=== PATIENT | male | born 1935 | race Caucasian/White ===

== ENCOUNTER 2017-07-30 13:21 | Inpatient (IN) | payer MEDICARE ==
[2017-07-30 14:41] LABS: CKMB 2.8 ng/mL (0-6.6)
[2017-07-30 14:43] LABS: Troponin I 0.394 ng/mL (< 0.028)
[2017-07-30 18:11] LABS: Lactic Acid 2.5 mmol/L (0.5-2.2)
--- NOTE | 2017-07-30 19:41 | HP ---
PRIMARY CARE PHYSICIAN: Dr. Omalley. CHIEF COMPLAINT: Cough and congestion. HISTORY OF PRESENT ILLNESS: Mr. Simeon is a pleasant 82-year-old gentleman that has a history of hyper tension as well as coronary artery disease. He was recently hospitalized at [facility] in [facility] after he suffered a fall with rib fractures. This was in June of this year. He was treated and re leased and says that he was doing better. The pain was improving, but he says about a week ago, he s tarted having some cough on and off primarily at night. The phlegm was initially greenish, but then more recently has become more whitish in color without any blood and he says that late last night he says "he is not sure what happened." It sounds like he said he was having a lot of pain last night a nd then this morning it sounds like he may have been confused because he says he does not know how he got to the hospital. He was taken to the emergency room in [place] by family. There, they did a chest x-ray as well as an EKG and lab work and it was discovered that he has a significant infiltr ate in the right lower lobe as well as leukocytosis and elevated troponin and he is being transferred to our facility for admission for pneumonia with sepsis. The patient at this time denies having any chest pain. He denies feeling short of breath. He says he has had some nausea off and on. He has denied having any subjective fever or chills at home. He says that he maintained a good appetite dur ing this time and has not had any diarrhea. No vomiting. REVIEW OF SYSTEMS: CONSTITUTIONAL: No subjective fever, no chills, no mention of any night sweats o r weight loss. HEENT: No headaches, no dizziness, no visual changes, no sore throat, rhinorrhea, ne ck pain, no adenopathy. PULMONARY: As the history of present illness. CARDIOVASCULAR: He denies a ny chest pain, no shortness of breath, no PND, no orthopnea. No lower extremity edema. GASTROINTEST INAL: He has had some nausea, but no vomiting, no abdominal pain, no change in bowels. GENITOURINAR Y: No urinary frequency, hematuria or hesitancy. NEUROLOGIC: No focal weakness, numbness, no seizu res. MUSCULOSKELETAL: No muscle pains, but he does have an occasional joint pain in the right knee from a previous surgery. SKIN/INTEGUMENT: No skin changes. No rash. PSYCHIATRIC: No symptoms of anxiety or depression. PAST MEDICAL HISTORY: Significant for hypertension, coronary artery disease, chronic kidney disease stage 3, and osteoarthritis. PAST SURGICAL HISTORY: He has had a right total knee replacement. This was complicated by a joint i nfection. He has had 4 surgeries on the knee as well as left shoulder surgery. ALLERGIES: Include MORPHINE, LEVOFLOXACIN, CRESTOR, and SIMVASTATIN. SOCIAL HISTORY: He lives with his and he has a son with a closed head injury who lives on their property. He drinks socially. He chews tobacco. He is not a smoker. CODE STATUS: FULL CODE. He would like to be resuscitated. FAMILY HISTORY: Negative. CURRENT MEDICATIONS: He is not sure of the names and doses of his medications. He says his jay arreola bring these by later. PHYSICAL EXAMINATION: GENERAL: He is alert and oriented. He appears to be in no acute distress. VITAL SIGNS: Blood pressure was 116/72, heart rate 99, respiratory rate of 18, temperature was 99. HEENT: Pupils are equal, round, and reactive. Extraocular muscles are intact. His sclerae are anic teric. Throat: There is no erythema, no exudates. He has got poor dentition. NECK: There is no adenopathy, no bruits. LUNGS: He had some rales in the right base; however, it was difficult to examine him due to his posi tioning on the stretcher. CARDIOVASCULAR: He had a normal S1 and S2. I did not appreciate an S3 or S4. No murmurs, clicks, n o rubs. ABDOMEN: Obese, it is soft. He had some mild right-sided tenderness. There was no rebound, no guar ding, no appreciable organomegaly. Bowel sounds were positive. EXTREMITIES: He had trace edema. It was noted he had no hair on his extremities. Pulses, however, were diminished but palpable. Good capillary refill. NEUROLOGIC: Neurologically, the exam is grossly nonfocal. LABORATORY DATA AND IMAGING DATA: His white count was 14.4, hemoglobin 15.5, hematocrit is 51, plate let count was 176, 83% neutrophils. Sodium 142, potassium 3.5, chloride is 102, CO2 is 26, BUN of 21 , creatinine 1.57, glucose is 123, troponin was 0.394. He had an EKG which is sinus rhythm, the rate was 120. He had some T-wave inversion and/or flattening in leads 1 and aVL, some voltage criteria f or left ventricular hypertrophy as well as leftward axis. This is by my reading and also had a chest x-ray with a dense airspace disease in the right lower lobe and the heart size looks normal and ther e was no evidence of effusion. ASSESSMENT AND PLAN: 1. This is a pleasant 82-year-old gentleman who presents to the emergency room with cough and conges tion with no subjective fever, but he does have leukocytosis as well as an elevated troponin and appa rently what sounds like there was some transient confusion, likely representing an encephalopathy. Lakshmi low will be admitted to telemetry since he does have the evidence of troponin and elevated troponin. Lakshmi low will be placed on broad spectrum IV antibiotics to cover for healthcare associated pneumonia since he has been in the hospital within the last 90 days. He will also be monitored on telemetry. We jay l continue to trend his cardiac enzymes and we will also get an echocardiogram. I suspect this is a demand ischemia from the pneumonia with sepsis. However, should his troponins go significantly highe r, then Cardiology consultation would be warranted. 2. Hypertension. We will continue his home medications once we obtain the names and doses and dark these as indicated. He may also need p.r.n. medications as well. 3. Chronic kidney disease. His creatinines were reviewed from previous admissions and his current c reatinine is actually slightly improved from before. We will monitor this carefully during his hospi charly stay and renal dose medications if needed.
[2017-07-30] MEDS ORDERED: Sodium Chloride 0.9% 1,000 ML IV SCH (20:45)
[2017-07-30] MEDS ORDERED: Benzonatate 100 MG CAP PO PRN (20:56)
[2017-07-30] MEDS ORDERED: Acetaminophen 325 MG TAB PO PRN (20:56)
[2017-07-30] MEDS ORDERED: Cefepime 1 GM in Sodium Chloride 0.9% 100 ML IVPB SCH (21:00)
[2017-07-30] MEDS ORDERED: Vancomycin HCl 1 GM in Premix Bag 1 BAG IVPB SCH (21:00)
[2017-07-30 21:14] VITALS: BMI 27.7
[2017-07-30] MEDS ORDERED: Vancomycin HCl 1.75 GM in Sodium Chloride 0.9% 500 ML IVPB SCH (21:15)
[2017-07-30] MEDS ORDERED: VANCOMYCIN IVPB PRN (21:16)
[2017-07-30 21:34] LABS: Lactic Acid 1.9 mmol/L (0.5-2.2)
[2017-07-30] MEDS: Docusate 100 MG CAP PO SCH (21:40)
[2017-07-30] MEDS: Heparin 5,000 UNITS/ML VIAL SC SCH (21:41)
[2017-07-30 21:47] LABS: Troponin I 1.071 ng/mL (< 0.028)
--- NOTE | 2017-07-30 22:12 | PDOC.EVN ---
Event Note - Event Note Event Note: paged by RN, trponin h as been elevated in the lower side, likely NSTEMI type 2 from underlying pneumonia, we will trend next level at 12:00 and treat accordingly.
[2017-07-31] MEDS: HYDROcodone/Acetaminophen 10/325 mg Tablet PO PRN ×3 (00:30→14:29)
[2017-07-31] MEDS: Cefepime 1 GM in Sodium Chloride 0.9% 100 ML IVPB SCH ×3 (00:35→23:36)
[2017-07-31 00:51] LABS: Critical Call Chem Troponin I RESULT DECREASING; Troponin I 1.016 ng/mL (< 0.028)
[2017-07-31 05:24] LABS: #Basophils 0.1 thou/uL (0.0-0.2); #Eosinphils 0.1 thou/uL (0.0-0.7); #Lymphocytes 1.4 thou/uL (1.20-3.40); #Monocytes 0.7 thou/uL (0.11-0.59); %Basophils 0.5 % (0.0-1.0); %Eosinophils 0.9 % (0.0-10.0); %Lymphocytes 10.5 % (21.0-51.0); %Monocytes 5.4 % (0.0-10.0); %Neutrophils 82.8 % (42.0-75.0); Hemoglobin 11.9 g/dL (14.0-18.0); Mean Corpuscular HGB CONC 30.4 g/dL (32.0-36.0); Mean Corpuscular Hemoglobin 27.7 pg (27.0-31.0); Mean Corpuscular Volume 91.2 fL (78.0-98.0); Mean Platelet Volume 7.2 fL (7.4-10.4); Platelet Count 137 thou/uL (130-400); RBC Distribution Width 14.1 % (11.5-14.5); Red Blood Cell (RBC) Count 4.29 mill/uL (4.70-6.10); White Blood Cell (WBC) Count 13.3 thou/uL (4.8-10.8)
[2017-07-31 05:46] LABS: Anion Gap 12 mmol/L (10-20); BUN (Urea Nitrogen) 20 mg/dL (8.4-25.7); Calc. Creatinine Clearance 49 mL/min (70-130); Calcium 7.9 mg/dL (7.8-10.44); Carbon Dioxide 25 mmol/L (23-31); Chloride 107 mmol/L (98-107); Estimated GFR-MDRD 43; Glucose 86 mg/dL (83-110); Potassium 3.4 mmol/L (3.5-5.1); Sodium 141 mmol/L (136-145)
[2017-07-31] MEDS: Heparin 5,000 UNITS/ML VIAL SC SCH ×3 (08:23→21:06)
[2017-07-31] MEDS: Docusate 100 MG CAP PO SCH ×2 (08:23→21:06)
[2017-07-31] MEDS: hydrALAZINE 20 MG/ML VIAL SLOW IVP PRN (08:23)
[2017-07-31] MEDS: Sodium Chloride 0.9% 1,000 ML IV SCH ×2 (08:29→14:31)
[2017-07-31] MEDS ORDERED: HYDROcodone/Acetaminophen 10/325 mg Tablet PO PRN (09:49)
[2017-07-31] MEDS ORDERED: Acetaminophen 325 MG TAB PO PRN (09:49)
[2017-07-31] MEDS ORDERED: Meclizine HCl 25 MG TAB PO PRN (09:49)
[2017-07-31] MEDS ORDERED: Loratadine 10 MG TAB PO PRN (10:00)
[2017-07-31] MEDS: Albuterol Sulfate 2.5 mg/3 ml Neb NEB SCH ×3 (10:20→18:35)
[2017-07-31] MEDS ORDERED: Carvedilol 3.125 MG TAB PO SCH (11:30)
[2017-07-31] MEDS ORDERED: Ezetimibe 10 MG TAB PO SCH (11:30)
[2017-07-31] MEDS ORDERED: Pantoprazole 40 MG GRANULES PACKET PO SCH (11:45)
[2017-07-31] MEDS ORDERED: Venlafaxine HCl XR 150 MG CAP PO SCH (11:45)
--- NOTE | 2017-07-31 11:52 | RAD ---
CHEST ONE VIEW: History: Follow up pneumonia. Chest pain. Comparison: FINDINGS: Mild interval improvement in the right lower and right middle lobe airspace opacity. Left lung relati vely clear. No pneumothorax. Cardiac silhouette and mediastinal contours are similar. IMPRESSION: Mild improved aeration right middle and lower lobe airspace opacities. Continued follow up recommende d. POS: JOHANNA
--- NOTE | 2017-07-31 12:48 | PRG ---
DATE OF SERVICE: 07/31/2017 SUBJECTIVE: The patient is seen and examined at the bedside. He does not complaint of any fever or chills. He has some cough, but not much. He does not have any chest pain. OBJECTIVE: VITAL SIGNS: Blood pressure is 180/96, pulse is 96, respiratory rate is 18. Temperature is 98.6 and O2 saturation is 94% on room air. HEENT: His head is atraumatic, normocephalic. Eyes are PERRLA. Conjunctivae pinkish. Oral mucosa is moist. NECK: Supple, no lymphadenopathy. LUNGS: Crackles at both bases. No wheezing. HEART: S1, S2 normal, no S3, no S4. ABDOMEN: Soft, nontender, nondistended. Bowel sounds are present, no organomegaly. EXTREMITIES: No clubbing, cyanosis or edema. NEUROLOGIC: He is alert and oriented x4. There is not any sensorimotor deficit. Cranial nerves are intact. LABORATORY DATA: Showed a white count of 13.3, hemoglobin 11.9, hematocrit 39.1, platelet count is 1 37,000. Sodium of 141, potassium 3.4, chloride 107, BUN 20, creatinine 1.56. Lactic acid is down to 1.9 yesterday, calcium 7.9. Two sets of last troponins showed some elevation at 1.071 and 1.016 and chest x-ray showed improvement of right middle and lower lobe airspace opacities. IMPRESSION: 1. Possible right middle and right lower lobe pneumonia. 2. Elevated troponins suggestive of non-ST elevation myocardial infarction. The patient is asymptom atic. 3. Hypertension, uncontrolled. 4. Chronic kidney disease and that is the level of creatinine even improved compared to his baseline . PLAN: The plan is to continue his cefepime and vancomycin. This is treated as healthcare acquired p neumonia broad spectrum. We will start him on his clopidogrel, along with aspirin and group therapist w ill evaluate his condition. I personally talked to Dr. Hernandez who is his group therapist and he is c quinten to see him. We will continue his DVT prophylaxis.
--- NOTE | 2017-07-31 13:35 | CON ---
DATE OF CONSULTATION: 07/31/2017 REASON FOR CONSULTATION: Elevated troponin. PRIMARY CARE PROVIDER: Dr. Garcia HISTORY OF PRESENT ILLNESS: Mr. Simeon is a very pleasant 82-year-old gentleman who I have seen and ev aluated in the past. He recently presented with pneumonia. He states he fell. He has had multiple falling episodes after recent knee replacement. He broke 4 ribs. He has not been able to inspire de eply. He had incentive spirometry, but could not use it due to chest wall pain. He presented to an outlying facility with the cough, congestion and greenish sputum. He was diagnosed with a right lowe r lobe pneumonia. His troponin was felt to be elevated. PAST MEDICAL HISTORY: CAD status post bypass surgery x4, hyperlipidemia, hypertension, previous str clementine, nephrolithiasis, osteoarthritis, knee surgery, left arm surgery. ALLERGIES: STATIN THERAPY, LEVOFLOXACIN, PENICILLIN, ZOCOR. CURRENT MEDICATIONS: Include vitamin D3, Zyrtec, melatonin, hydrocodone, meclizine, Coreg, venlafaxi ne, pantoprazole, Zetia, aspirin, Plavix, tamsulosin, fish oil, Livalo and Zetia. REVIEW OF SYSTEMS: Ten-point review of systems is reviewed and as above, otherwise negative. PHYSICAL EXAMINATION: VITAL SIGNS: Blood pressure 159/74, pulse 82, temperature 98.1. GENERAL: Patient is a pleasant male who is in no acute distress. The patient appears his stated age. NEUROLOGIC: The patient is alert and oriented times 3 with no focal neurologic deficits. HEENT: Sclerae without icterus. Mouth has moist mucous membranes with normal pallor. NECK: No JVD. Carotid upstroke brisk. No bruits bilaterally. LUNGS: Clear to auscultation with unlabored respirations. BACK: No scoliosis or kyphosis. CARDIAC: Regular rate and rhythm with normal S1 and S2. No S3 or S4 noted. No significant rubs, mur murs, thrills, or gallops noted throughout the precordium. PMI is not displaced. There is no parast ernal heave. ABDOMEN: Soft, nontender, nondistended. No peritoneal signs present. No hepatosplenomegaly. No abn ormal striae. EXTREMITIES: 2+ femoral and 2+ dorsalis pedis pulses. No cyanosis, clubbing, or edema. SKIN: No gross abnormalities. PERTINENT LABS: Hemoglobin 11.1, white blood cell count 13.3. Initial white blood cell count 14.4 w ith a baseline of 6-7000. EKG: Normal sinus rhythm, nonspecific ST wave changes. When compared to EKG dated 04/2017 appears i mproved. IMPRESSION: 1. Elevated troponin. 2. Pneumonia. 3. Coronary artery disease. 4. Status post bypass surgery. RECOMMENDATIONS: Mr. Lopez's symptoms are likely related to demand ischemia. He has no current sympt oms suggesting unstable angina. He does have pneumonia, he has been treated with antibiotic therapy. At this point, would recommend medical therapy. Continue aspirin and Plavix. Continue beta block er therapy in addition to Zetia. Recommend incentive spirometry.
[2017-07-31] MEDS: Carvedilol 3.125 MG TAB PO SCH (17:06)
[2017-07-31] MEDS ORDERED: Vancomycin HCl 1 GM in Premix Bag 1 BAG IVPB SCH (21:00)
[2017-07-31] MEDS ORDERED: Pitavastatin Calcium [Livalo] 4 MG PO SCH (21:00)
[2017-07-31] MEDS ORDERED: ALOE VERA PO SCH (21:00)
[2017-07-31] MEDS: Senokot 8.6 MG TAB PO SCH (21:06)
[2017-07-31] MEDS: Clopidogrel Bisulfate 75 MG TAB PO SCH (21:06)
[2017-07-31] MEDS: Tamsulosin HCl 0.4 MG CAP PO SCH (21:06)
[2017-07-31] MEDS: Melatonin 3 MG TAB PO SCH (21:06)
[2017-07-31] MEDS: Fluticasone Propionate Nasal Spray 16 gm Bottle NASAL SCH (21:07)
[2017-08-01] MEDS: Sodium Chloride 0.9% 1,000 ML IV SCH (05:05)
[2017-08-01] MEDS: Albuterol Sulfate 2.5 mg/3 ml Neb NEB SCH ×4 (07:06→18:35)
[2017-08-01] MEDS: Docusate 100 MG CAP PO SCH (08:57)
[2017-08-01] MEDS: Venlafaxine HCl XR 150 MG CAP PO SCH (08:57)
[2017-08-01] MEDS: Ezetimibe 10 MG TAB PO SCH (08:57)
[2017-08-01] MEDS: Carvedilol 3.125 MG TAB PO SCH (08:58)
[2017-08-01] MEDS: Pantoprazole 40 MG GRANULES PACKET PO SCH (08:58)
[2017-08-01] MEDS: hydrALAZINE 20 MG/ML VIAL SLOW IVP PRN (08:58)
[2017-08-01] MEDS: Heparin 5,000 UNITS/ML VIAL SC SCH ×2 (09:08→15:26)
--- NOTE | 2017-08-01 11:34 | PDOC.PN ---
- Subjective Encounter Start Date: 08/01/17 Encounter Start Time: 11:34 Patient seen and examined. Admitted for Right Lower lobe pneumonia, elevated troponin. Doing well today and has no complaints. wants to ambulate better but reports his walker being at home. No acute events overnight. - Objective Resuscitation Status: Resuscitation Status FULL:Full Resuscitation MAR Reviewed: Yes Vital Signs & Weight: Vital Signs (12 hours) Temp Pulse Resp BP BP Pulse Ox 08/01/17 10:40 125/71 08/01/17 10:23 82 16 92 L 08/01/17 08:58 95 202/107 H 08/01/17 08:45 96.9 F L 95 18 202/107 H 93 L 08/01/17 07:06 83 16 93 L 08/01/17 03:16 98.9 F 90 18 164/78 H 92 L Weight Weight 204 lb 1 oz I&O: 07/31/17 08/01/17 08/02/17 06:59 06:59 06:59 Intake Total 1230 1972 Output Total 1350 3575 Balance -120 -1603 Result Diagrams: 07/31/17 04:51 07/31/17 04:51 Phys Exam - Physical Examination Constitutional: NAD HEENT: moist MMs, sclera anicteric Neck: no JVD, supple, full ROM Respiratory: no wheezing, no rales, no rhonchi, clear to auscultation bilateral Cardiovascular: RRR, no significant murmur, no rub Gastrointestinal: soft, non-tender, no distention, positive bowel sounds Musculoskeletal: no edema, pulses present Neurological: non-focal, moves all 4 limbs Psychiatric: normal affect, A&O x 3 Dx/Plan (1) Pneumonia Code(s): J18.9 - PNEUMONIA, UNSPECIFIED ORGANISM Status: Acute Qualifiers: Pneumonia type: due to unspecified organism Laterality: right Lung location: lower lobe of lung Qualified Code(s): J18.1 - Lobar pneumonia, unspecified organism Comment: Improving. Continue cefepime and Vancomycin for today. (2) Elevated troponin I level Code(s): R74.8 - ABNORMAL LEVELS OF OTHER SERUM ENZYMES Status: Acute Comment: Likely 2/2 underlying PNA. Trending down Cardiology reviewed and recommended medical therapy- ASA and Plavix. (3) CAD (coronary artery disease) Code(s): I25.10 - ATHSCL HEART DISEASE OF [place] CORONARY ARTERY W/O ANG PCTRS Status: Chronic Qualifiers: Coronary Disease-Associated Artery/Lesion type: unspecified vessel or lesion type [place] vs. transplanted heart: [place] heart Associated angina: without angina Qualified Code(s): I25.10 - Atherosclerotic heart disease of [place] coronary artery without angina pectoris Comment: Stable. Chest pain free and resumed on home regimen. (4) CKD (chronic kidney disease) stage 3, GFR 30-59 ml/min Status: Chronic Comment: Stable and at baseline. (5) Dyslipidemia Code(s): E78.5 - HYPERLIPIDEMIA, UNSPECIFIED Status: Chronic Comment: on statin. (6) GERD (gastroesophageal reflux disease) Code(s): K21.9 - GASTRO-ESOPHAGEAL REFLUX DISEASE WITHOUT ESOPHAGITIS Status: Chronic Qualifiers: Esophagitis presence: without esophagitis Qualified Code(s): K21.9 - Gastro -esophageal reflux disease without esophagitis (7) HTN (hypertension) Code(s): I10 - ESSENTIAL (PRIMARY) HYPERTENSION Status: Chronic Qualifiers: Hypertension type: essential hypertension Qualified Code(s): I10 - Essential (primary) hypertension Comment: Not at goal. Will increase Carvedilol dose and monitor. - Plan cont current plan of care, continue antibiotics, PT/OT, out of bed/ambulate, DVT proph w/heparin * . Review of Systems - Medications/Allergies Allergies/Adverse Reactions: Allergies Allergy/AdvReac Type Severity Reaction Status Date / Time morphine Allergy Intermediate CONFUSION Verified 06/20/17 14:14 levofloxacin [From Levaquin] Allergy hallucinati Verified 11/19/15 11:46 ons rosuvastatin calcium Allergy leg Verified 11/19/15 11:46 [From Crestor] cramping simvastatin [From Zocor] Allergy leg Verified 11/19/15 11:46 cramping Medications: Current Medications Acetaminophen (Tylenol) 650 mg PO Q4H PRN PRN Reason: pain Last Admin: 08/01/17 09:00 Dose: 650 mg Hydrocodone Bitart/Acetaminophen ([place] 10/325) 1 tab PO Q4H PRN PRN Reason: Moderate Pain (4-6) Last Admin: 07/31/17 14:29 Dose: 1 tab Hydrocodone Bitart/Acetaminophen ([place] 10/325) 1 tab PO Q4HR PRN PRN Reason: Moderate Pain (4-6) Albuterol Sulfate (Ventolin) 2.5 mg NEB QID-RT [facility] Last Admin: 08/01/17 10:23 Dose: 2.5 mg Aspirin (Aspirin Chewable) 81 mg PO DAILY [facility] Last Admin: 08/01/17 08:57 Dose: 81 mg Benzonatate (Tessalon) 100 mg PO Q4H PRN PRN Reason: Cough Carvedilol (Coreg) 3.125 mg PO BID-WM [facility] Last Admin: 08/01/17 08:58 Dose: 3.125 mg Cholecalciferol (Vitamin D3) 5,000 units PO DAILY [facility] Last Admin: 08/01/17 08:57 Dose: 5,000 units Clopidogrel Bisulfate (Plavix) 75 mg PO HS [facility] Last Admin: 07/31/17 21:06 Dose: 75 mg Docusate Sodium (Colace) 100 mg PO BID [facility] Last Admin: 08/01/17 08:57 Dose: 100 mg Ezetimibe (Zetia) 10 mg PO QAM [facility] Last Admin: 08/01/17 08:57 Dose: 10 mg Fluticasone Propionate (Flonase Nasal [place]) 0 gm NASAL HS [facility] Last Admin: 07/31/17 21:07 Dose: 1 spr Heparin Sodium (Porcine) (Heparin) 5,000 units SC TID [facility] Last Admin: 08/01/17 09:08 Dose: 5,000 units Hydralazine HCl (Apresoline) 10 mg SLOW IVP Q4H PRN PRN Reason: Systolic BP > 180 Last Admin: 08/01/17 08:58 Dose: 10 mg Vancomycin HCl 1 gm/ Device 200 mls @ 200 mls/hr IVPB 2100 [facility] Last Admin: 07/31/17 21:05 Dose: 200 mls Cefepime HCl 1 gm/ Sodium (Chloride) 100 mls @ 200 mls/hr IVPB 1100,2300 [facility] Last Admin: 07/31/17 23:36 Dose: 100 mls Sodium Chloride (Normal Saline 0.9%) 1,000 mls @ 75 mls/hr IV .[id number] [facility] Last Admin: 08/01/17 05:05 Dose: 1,000 mls Loratadine (Claritin) 10 mg PO QAM PRN PRN Reason: ALLERGIES Meclizine HCl (Antivert) 25 mg PO BID PRN PRN Reason: Dizziness Melatonin (Melatonin) 3 mg PO [facility] Last Admin: 07/31/17 21:06 Dose: 3 mg Miscellaneous Medication (Pharmacy To Dose) 1 each IVPB PRN PRN PRN Reason: PNEUMONIA Pantoprazole S[facility] ([facility]ix) [facility] Last Admin: 08/01/17 08:58 Dose: 40 mg Aloe Vera [Aloe Vera (] 60 Mg) 0 each PO BID [facility] Pitavastatin Calcium ([Livalo] 4 Mg) 0 each PO HS [facility] Senna (Senokot) 1 tab PO [facility] Last Admin: 07/31/17 21:06 Dose: 1 tab Tamsulosin HCl (Flomax) 0.4 mg PO [facility] Last Admin: 07/31/17 21:06 Dose: 0.4 mg Venlafaxine HCl (Effexor Xr) 150 mg PO [facility] Last Admin: 08/01/17 08:57 Dose: 150 mg
[2017-08-01] MEDS ORDERED: Potassium Chloride 20 MEQ TAB PO SCH (11:45)
[2017-08-01] MEDS: Cefepime 1 GM in Sodium Chloride 0.9% 100 ML IVPB SCH ×2 (11:48→22:35)
[2017-08-01] MEDS ORDERED: hydrALAZINE 20 MG/ML VIAL SLOW IVP SCH ×2 (12:45)
--- NOTE | 2017-08-01 12:54 | PDOC.CTH ---
Cardiology Progress Note - Subjective Patient with complaint of upset stomach. No N/V/D. Only stomach cramps. No CP/ SOB. - Objective Vital Signs Temp Pulse Resp BP BP BP Pulse Ox 08/01/17 12:43 87 08/01/17 12:42 87 212/101 H 08/01/17 12:05 98.6 F 87 16 212/103 H 08/01/17 10:40 125/71 08/01/17 10:23 82 16 92 L 08/01/17 08:58 95 202/107 H 08/01/17 08:45 96.9 F L 95 18 202/107 H 93 L 08/01/17 07:06 83 16 93 L 08/01/17 03:16 98.9 F 90 18 164/78 H 92 L Weight 204 lb 1 oz 07/31/17 08/01/17 08/02/17 06:59 06:59 06:59 Intake Total 1230 1972 Output Total 1350 3575 Balance -120 -1603 - Physical Examination General/Neuro: alert & oriented x3 Neck: no JVD present Lungs: CTA Heart: RRR Abdomen: NT/ND Extremities: other: (no edema) - Telemetry Telemetry Rhythm: SR - Labs Result Diagrams: 07/31/17 04:51 07/31/17 04:51 Troponin/CKMB CK-MB (CK-2) 2.8 ng/mL (0-6.6) 07/30/17 14:02 Troponin I 1.016 ng/mL (< 0.028) H* 07/31/17 00:14 - Assessment/Plan 1. Elevated trop - secondary to demand ischemia 2. CAP 3. CAD s/p CABG Overall doing well. Continue fluid encouragement. No changes today.
[2017-08-01] MEDS: HYDROcodone/Acetaminophen 10/325 mg Tablet PO PRN ×2 (13:49→19:29)
[2017-08-01] MEDS ORDERED: Labetalol HCl 100 MG/20 ML VIAL SLOW IVP PRN (15:29)
[2017-08-01] MEDS ORDERED: traMADol HCl 50 MG TAB PO PRN (15:30)
[2017-08-01] MEDS: Sodium Chloride 0.9% 10 ML ONE ×2 (16:19→16:20)
[2017-08-01] MEDS ORDERED: Carvedilol 6.25 MG TAB PO SCH (17:00)
[2017-08-01 18:30] LABS: #Eosinphils 0.3 thou/uL (0.0-0.7); #Lymphocytes 0.9 thou/uL (1.20-3.40); #Monocytes 0.6 thou/uL (0.11-0.59); #Neutrophils 6.7 thou/uL (1.40-6.50); %Basophils 0.5 % (0.0-1.0); %Eosinophils 3.4 % (0.0-10.0); %Lymphocytes 10.6 % (21.0-51.0); %Monocytes 7.1 % (0.0-10.0); %Neutrophils 78.4 % (42.0-75.0); Hemoglobin 13.4 g/dL (14.0-18.0); Mean Corpuscular HGB CONC 33.1 g/dL (32.0-36.0); Mean Corpuscular Hemoglobin 29.4 pg (27.0-31.0); Mean Corpuscular Volume 88.8 fL (78.0-98.0); Mean Platelet Volume 6.9 fL (7.4-10.4); Platelet Count 147 thou/uL (130-400); RBC Distribution Width 13.9 % (11.5-14.5); Red Blood Cell (RBC) Count 4.56 mill/uL (4.70-6.10); White Blood Cell (WBC) Count 8.5 thou/uL (4.8-10.8)
[2017-08-01 20:16] LABS: Vancomycin, Trough 12.1 ug/mL
[2017-08-01] MEDS ORDERED: Vancomycin HCl 1.25 GM in Sodium Chloride 0.9% 250 ML 250 ML IVPB SCH (21:00)
[2017-08-01 21:14] LABS: Bilirubin Negative (Negative); Blood, Urine Large (Negative); Clarity CLEAR (Clear); Glucose, Urine (Dipstick) 100 mg/dL (Negative); Leukocyte Negative (Negative); Nitrite Negative (Negative); Protein, Urine (Dipstick) 30 mg/dL (Neg-Trace); Specific Gravity, Urine 1.009 (1.002-1.036); Urobilinogen 0.2 mg/dL (0.2-1.0)
[2017-08-01 21:16] LABS: Bacteria/HPF None Seen HPF (None Seen); Hyaline Casts/LPF 0-3 HYALINE CAST LPF (0-3 Hyaline); Pathc Cast-AUWi Flag 0.14 (0-2.49); RBC/HPF GREATER THAN 50-TNTC HPF (0-3); Squamous Epithelial None Seen HPF (0-3); WBC/HPF None Seen HPF (0-3)
[2017-08-01] MEDS ORDERED: Budesonide 0.5 MG/2 ML NEB ONE (22:31)
[2017-08-02] MEDS: Clopidogrel Bisulfate 75 MG TAB PO SCH ×2 (04:38→21:52)
[2017-08-02] MEDS: Heparin 5,000 UNITS/ML VIAL SC SCH ×4 (04:38→21:51)
[2017-08-02] MEDS: Senokot 8.6 MG TAB PO SCH ×2 (04:38→21:52)
[2017-08-02] MEDS: Melatonin 3 MG TAB PO SCH ×2 (04:38→21:52)
[2017-08-02] MEDS: Docusate 100 MG CAP PO SCH ×2 (04:38→09:31)
[2017-08-02] MEDS: Fluticasone Propionate Nasal Spray 16 gm Bottle NASAL SCH ×2 (04:38→21:56)
[2017-08-02] MEDS: Tamsulosin HCl 0.4 MG CAP PO SCH ×2 (04:38→21:52)
[2017-08-02] MEDS: Albuterol Sulfate 2.5 mg/3 ml Neb NEB SCH ×4 (07:19→19:32)
[2017-08-02 08:03] LABS: #Eosinphils 0.2 thou/uL (0.0-0.7); #Monocytes 0.6 thou/uL (0.11-0.59); #Neutrophils 4.9 thou/uL (1.40-6.50); %Basophils 0.2 % (0.0-1.0); %Eosinophils 3.4 % (0.0-10.0); %Lymphocytes 15.1 % (21.0-51.0); %Monocytes 8.8 % (0.0-10.0); %Neutrophils 72.5 % (42.0-75.0); Mean Corpuscular HGB CONC 32.2 g/dL (32.0-36.0); Mean Corpuscular Hemoglobin 28.7 pg (27.0-31.0); Mean Corpuscular Volume 89.2 fL (78.0-98.0); Mean Platelet Volume 6.7 fL (7.4-10.4); Platelet Count 149 thou/uL (130-400); Red Blood Cell (RBC) Count 4.53 mill/uL (4.70-6.10); White Blood Cell (WBC) Count 6.8 thou/uL (4.8-10.8)
[2017-08-02] MEDS ORDERED: Sodium Chloride 0.9% 10 ML ONE ×2 (08:11→10:45)
[2017-08-02 08:23] LABS: ALT (SGPT) 19 U/L (8-55); AST (SGOT) 19 U/L (5-34); Alkaline Phosphatase 63 U/L (40-150); Anion Gap 12 mmol/L (10-20); BUN (Urea Nitrogen) 12 mg/dL (8.4-25.7); Bilirubin, Total 0.6 mg/dL (0.2-1.2); Calc. Creatinine Clearance 46 mL/min (70-130); Calcium 9.1 mg/dL (7.8-10.44); Carbon Dioxide 26 mmol/L (23-31); Chloride 106 mmol/L (98-107); Estimated GFR-MDRD 41; Glucose 104 mg/dL (83-110); Potassium 3.9 mmol/L (3.5-5.1); Sodium 140 mmol/L (136-145)
--- NOTE | 2017-08-02 09:12 | ULT ---
COMPLETE ABDOMINAL UTLRASOUND: COMPARISON: None. HISTORY: Right-sided abdominal pain. TECHNIQUE: Multiplanar, cerrato scale, and color Doppler images were obtained in a complete abdominal ultrasound. FINDINGS: The liver is normal in echogenicity without focal lesions or intrahepatic ductal dilatation. The gal lbladder has been removed. The common bile duct is upper limits of normal measuring 6 mm. The pancreas could not be visualized. The aorta and inferior vena cava are normal in caliber. The s pleen is normal in echogenicity without focal lesion and measures 12.5 cm in length. Both kidneys contain an anechoic cyst. The largest is seen on the right measuring 9.8 cm in size. M ild prominence of right renal collecting system is seen. No left-sided hydronephrosis is seen. The kidneys measure 12.5 and 11.5 cm in length on the right and left, respectively. IMPRESSION: Bilateral renal cysts. POS: SHANDRA
[2017-08-02] MEDS: Carvedilol 25 MG TAB PO SCH ×2 (09:31→17:27)
[2017-08-02] MEDS: Ezetimibe 10 MG TAB PO SCH (09:31)
[2017-08-02] MEDS: Venlafaxine HCl XR 150 MG CAP PO SCH (09:32)
[2017-08-02] MEDS: Potassium Chloride 20 MEQ TAB PO SCH (09:32)
[2017-08-02] MEDS: Amlodipine 10 MG TAB PO SCH (09:32)
[2017-08-02] MEDS: Pantoprazole 40 MG GRANULES PACKET PO SCH (09:33)
--- NOTE | 2017-08-02 10:01 | PDOC.CTH ---
Cardiology Progress Note - Subjective No complaints. Feeling much better today. Wants to get up and walk for therapy. BP has been elevated, but asymptomatic. - Objective Vital Signs Temp Pulse Resp BP BP BP Pulse Ox 08/02/17 09:32 76 170/96 H 08/02/17 07:27 97.5 F L 76 18 97 08/02/17 07:21 96 08/02/17 07:19 74 16 96 08/02/17 03:24 98.6 F 76 18 168/93 H 92 L 08/02/17 00:00 97.9 F 66 14 164/79 H 92 L Weight 199 lb 3 oz 08/01/17 08/02/17 08/03/17 06:59 06:59 06:59 Intake Total 1972 1524 Output Total 3575 2550 Balance -3513 1026 - Physical Examination General/Neuro: alert & oriented x3 Neck: no JVD present Lungs: CTA Heart: RRR Abdomen: NT/ND Extremities: other: (no edema) - Telemetry Telemetry Rhythm: SR - Labs Result Diagrams: 08/02/17 07:50 08/02/17 07:50 Troponin/CKMB CK-MB (CK-2) 2.8 ng/mL (0-6.6) 07/30/17 14:02 Troponin I 1.016 ng/mL (< 0.028) H* 07/31/17 00:14 - Assessment/Plan 1. HTN 2. Elevated trop - secondary to demand ischemia 3. CAP 4. CAD s/p CABG 5. CKD - III Improved strength today. No complaints. Will add hydralazine for HTN.
[2017-08-02] MEDS ORDERED: hydrALAZINE 25 MG TAB PO SCH (10:15)
--- NOTE | 2017-08-02 10:47 | PDOC.PN ---
- Subjective Encounter Start Date: 08/02/17 Encounter Start Time: 10:45 Patient seen and examined. Admitted for Right Lower lobe pneumonia, elevated troponin. No acute events overnight. Had some abdominal pain yesterday but much better today. Abdominal US showed bilateral renal cysts. - Objective Resuscitation Status: Resuscitation Status FULL:Full Resuscitation Vital Signs & Weight: Vital Signs (12 hours) Temp Pulse Resp BP BP BP Pulse Ox 08/02/17 09:32 76 170/96 H 08/02/17 07:27 97.5 F L 76 18 97 08/02/17 07:21 96 08/02/17 07:19 74 16 96 08/02/17 03:24 98.6 F 76 18 168/93 H 92 L 08/02/17 00:00 97.9 F 66 14 164/79 H 92 L Weight Weight 199 lb 3 oz I&O: 08/01/17 08/02/17 08/03/17 06:59 06:59 06:59 Intake Total 1972 1524 Output Total 3575 2550 Balance -1603 -1026 Result Diagrams: 08/02/17 07:50 08/02/17 07:50 Phys Exam - Physical Examination HEENT: moist MMs, sclera anicteric Neck: supple, full ROM Respiratory: no wheezing, no rales, no rhonchi, clear to auscultation bilateral Cardiovascular: RRR, no significant murmur, no rub Gastrointestinal: soft, non-tender, no distention, positive bowel sounds Musculoskeletal: no edema, pulses present Neurological: non-focal, moves all 4 limbs Psychiatric: normal affect, A&O x 3 Skin: no rash, normal turgor Dx/Plan (1) HTN (hypertension) Code(s): I10 - ESSENTIAL (PRIMARY) HYPERTENSION Status: Chronic Qualifiers: Hypertension type: essential hypertension Qualified Code(s): I10 - Essential (primary) hypertension Comment: Achieving better control. Now on carvedilol and Amlodipine. Not on ACEi due to elevated creatinine. (2) Pneumonia Code(s): J18.9 - PNEUMONIA, UNSPECIFIED ORGANISM Status: Acute Qualifiers: Pneumonia type: due to unspecified organism Laterality: right Lung location: lower lobe of lung Qualified Code(s): J18.1 - Lobar pneumonia, unspecified organism Comment: Improving. Continue cefepime , will discontinue Vancomycin. (3) Elevated troponin I level Code(s): R74.8 - ABNORMAL LEVELS OF OTHER SERUM ENZYMES Status: Acute Comment: Chest pain free. Likely 2/2 underlying PNA--> demand ischemia. Trending down Cardiology reviewed and recommended medical therapy- ASA and Plavix. (4) CAD (coronary artery disease) Code(s): I25.10 - ATHSCL HEART DISEASE OF [place] CORONARY ARTERY W/O ANG PCTRS Status: Chronic Qualifiers: Coronary Disease-Associated Artery/Lesion type: unspecified vessel or lesion type [place] vs. transplanted heart: [place] heart Associated angina: without angina Qualified Code(s): I25.10 - Atherosclerotic heart disease of [place] coronary artery without angina pectoris Comment: Stable. Chest pain free and resumed on home regimen. (5) CKD (chronic kidney disease) stage 3, GFR 30-59 ml/min Status: Chronic Comment: Creatinine trended up. Will give a gentle bolus and encourage PO fluid intake. (6) Dyslipidemia Code(s): E78.5 - HYPERLIPIDEMIA, UNSPECIFIED Status: Chronic Comment: on statin. (7) GERD (gastroesophageal reflux disease) Code(s): K21.9 - GASTRO-ESOPHAGEAL REFLUX DISEASE WITHOUT ESOPHAGITIS Status: Chronic Qualifiers: Esophagitis presence: without esophagitis Qualified Code(s): K21.9 - Gastro -esophageal reflux disease without esophagitis - Plan cont current plan of care, continue antibiotics, PT/OT, out of bed/ambulate, DVT proph w/heparin * . Review of Systems - Medications/Allergies Allergies/Adverse Reactions: Allergies Allergy/AdvReac Type Severity Reaction Status Date / Time morphine Allergy Intermediate CONFUSION Verified 08/01/17 17:59 fentanyl Allergy Verified 08/01/17 18:00 levofloxacin [From Levaquin] Allergy hallucinati Verified 11/19/15 11:46 ons rosuvastatin calcium Allergy leg Verified 11/19/15 11:46 [From Crestor] cramping simvastatin [From Zocor] Allergy leg Verified 11/19/15 11:46 cramping Medications: Current Medications Acetaminophen (Tylenol) 650 mg PO Q4H PRN PRN Reason: pain Last Admin: 08/01/17 09:00 Dose: 650 mg Hydrocodone Bitart/Acetaminophen ([place] 10/325) 1 tab PO Q4H PRN PRN Reason: Moderate Pain (4-6) Last Admin: 08/01/17 19:29 Dose: 1 tab Hydrocodone Bitart/Acetaminophen ([place] 10/325) 1 tab PO Q4HR PRN PRN Reason: Moderate Pain (4-6) Albuterol Sulfate (Ventolin) 2.5 mg NEB QID-RT [facility] Last Admin: 08/02/17 07:19 Dose: 2.5 mg Amlodipine Besylate (Norvasc) 10 mg PO DAILY [facility] Last Admin: 08/02/17 09:32 Dose: 10 mg Aspirin (Aspirin Chewable) 81 mg PO DAILY [facility] Last Admin: 08/02/17 09:31 Dose: 81 mg Benzonatate (Tessalon) 100 mg PO Q4H PRN PRN Reason: Cough Carvedilol (Coreg) 25 mg PO BID[facility] Last Admin: 08/02/17 09:31 Dose: 25 mg Cholecalciferol (Vitamin D3) 5,000 units PO DAILY [facility] Last Admin: 08/02/17 09:31 Dose: 5,000 units Clopidogrel Bisulfate (Plavix) 75 mg PO HS [facility] Last Admin: 08/02/17 04:38 Dose: Not Given Docusate Sodium (Colace) 100 mg PO BID [facility] Last Admin: 08/02/17 09:31 Dose: 100 mg Ezetimibe (Zetia) 10 mg PO QAM [facility] Last Admin: 08/02/17 09:31 Dose: 10 mg Fluticasone Propionate (Flonase Nasal Rentz) 0 gm NASAL HS [facility] Last Admin: 08/02/17 04:38 Dose: Not Given Heparin Sodium (Porcine) (Heparin) 5,000 units SC TID [facility] Last Admin: 08/02/17 09:34 Dose: 5,000 units Hydralazine HCl (Apresoline) 10 mg SLOW IVP Q4H PRN PRN Reason: Systolic BP > 180 Last Admin: 08/01/17 08:58 Dose: 10 mg Hydralazine HCl (Apresoline) 25 mg PO BID [facility] Hydralazine HCl (Apresoline) 25 mg PO NOW [facility] Stop: 08/02/17 12:15 Cefepime HCl 1 gm/ Sodium (Chloride) 100 mls @ 200 mls/hr IVPB 1100,2300 [facility] Last Admin: 08/01/17 22:35 Dose: 100 mls Vancomycin HCl 1.25 gm/ Sodium (Chloride) 250 mls @ 166.667 mls/hr IVPB 2100 [facility] Last Admin: 08/01/17 21:11 Dose: 250 mls Labetalol HCl (Normodyne) 10 mg SLOW IVP Q4H PRN PRN Reason: SBP Greater Than 180 Last Admin: 08/01/17 16:16 Dose: 10 mg Loratadine (Claritin) 10 mg PO QAM PRN PRN Reason: ALLERGIES Meclizine HCl (Antivert) 25 mg PO BID PRN PRN Reason: Dizziness Melatonin (Melatonin) 3 mg PO [facility] Last Admin: 08/02/17 04:38 Dose: Not Given Miscellaneous Medication (Pharmacy To Dose) 1 each IVPB PRN PRN PRN Reason: PNEUMONIA Pantoprazole Sodium ([facility]ix) [facility] Last Admin: 08/02/17 09:33 Dose: 40 mg Pitavastatin Calcium ([Livalo] 4 Mg) 0 each PO [facility] Potassium Chloride (K-Dur) 20 meq PO QA[facility] Last Admin: 08/02/17 09:32 Dose: 20 meq Senna (Senokot) 1 tab PO [facility] Last Admin: 08/02/17 04:38 Dose: Not Given Tamsulosin HCl (Flomax) 0.4 mg PO [facility] Last Admin: 08/02/17 04:38 Dose: Not Given Tramadol HCl (Ultram) 50 mg PO Q6H PRN PRN Reason: Moderate Pain (4-6) Venlafaxine HCl (Effexor Xr) 150 mg PO [facility] Last Admin: 08/02/17 09:32 Dose: 150 mg
[2017-08-02] MEDS ORDERED: Sodium Chloride 0.9% 500 ML IV SCH (11:00)
[2017-08-02] MEDS: Cefepime 1 GM in Sodium Chloride 0.9% 100 ML IVPB SCH ×2 (12:39→22:47)
[2017-08-02] MEDS ORDERED: Polyethylene Glycol 3350 17 GM Packet PO SCH (15:45)
[2017-08-02] MEDS: hydrALAZINE 25 MG TAB PO SCH (21:52)
[2017-08-03 07:24] LABS: Anion Gap 12 mmol/L (10-20); BUN (Urea Nitrogen) 18 mg/dL (8.4-25.7); Calc. Creatinine Clearance 43 mL/min (70-130); Calcium 9.1 mg/dL (7.8-10.44); Carbon Dioxide 27 mmol/L (23-31); Chloride 105 mmol/L (98-107); Estimated GFR-MDRD 38; Glucose 113 mg/dL (83-110); Potassium 3.6 mmol/L (3.5-5.1); Sodium 140 mmol/L (136-145)
[2017-08-03] MEDS: Albuterol Sulfate 2.5 mg/3 ml Neb NEB SCH ×2 (07:27→10:35)
[2017-08-03] MEDS: Carvedilol 25 MG TAB PO SCH (08:21)
[2017-08-03] MEDS: hydrALAZINE 25 MG TAB PO SCH (08:21)
[2017-08-03] MEDS: Ezetimibe 10 MG TAB PO SCH (08:21)
[2017-08-03] MEDS: Potassium Chloride 20 MEQ TAB PO SCH (08:21)
[2017-08-03] MEDS: Amlodipine 10 MG TAB PO SCH (08:22)
[2017-08-03] MEDS: Venlafaxine HCl XR 150 MG CAP PO SCH (08:22)
[2017-08-03] MEDS: Heparin 5,000 UNITS/ML VIAL SC SCH (08:22)
[2017-08-03] MEDS: Pantoprazole 40 MG GRANULES PACKET PO SCH ×2 (08:34→08:51)
[2017-08-03] MEDS ORDERED: Docusate 100 MG CAP PO SCH (09:00)
[2017-08-03] MEDS: Cefepime 1 GM in Sodium Chloride 0.9% 100 ML IVPB SCH ×2 (11:00→11:04)
[2017-08-03 12:11] VITALS: BP 118/67; TEMP 98.3
--- NOTE | 2017-08-04 08:53 | DIS ---
DATE OF ADMISSION: 07/30/2017 DATE OF DISCHARGE: 08/03/2017 DISCHARGE DIAGNOSES: Community-acquired pneumonia, hypertension, elevated troponin secondary to demand ischemia, coronary artery disease status post coronary artery bypass grafting, and chronic kidney disease stage 3. HISTORY OF PRESENT ILLNESS/HOSPITAL COURSE: Mr. Simeon is a pleasant 82-year-old male, who presented to the emergency room with cough and congestion. He was recently hospitalized at [facility] in [place], after a suffered a fall with rib fractures in June of this year, he was recently released, states he has been doing better since then. He was improving, but reports about a week before he presented to the hospital, he developed an intermittent cough, which was worse at night associated with greenish sputum, but eventually changed to white. There was no associated hemoptysis and due to a possible patient being confused the night before, he was taken to the emergency room in [place] by family where an x-ray was done as well as an EKG and lab work done showed a significant infiltrate in his right lower lobe, leukocytosis and elevated troponin. He was then transferred to [facility] Emergency Room for pneumonia with sepsis. He was started on hydration and IV antibiotics and was admitted to the telemetry service on his troponin was trended. Cardiology was consulted and start elevated troponin was used to demand ischemia and so there was no acute intervention. An echocardiogram was also ordered and it showed an ejection fraction of 50% to 55% with hypokinetic motion in the inferior wall noted on the left ventricle, suggestive of diastolic dysfunction. The patient continued to improve with therapy and was discharged on p.o. antibiotics. DISCHARGE MEDICATIONS: Amlodipine 10 mg daily, hydralazine 25 mg twice a day, Omnicef 200 mg q.12 hours, Aloe Vera 60 mg twice a day, aspirin 81 mg daily, Flomax 1 tablet at bedtime, pantoprazole 40 mg daily, Plavix 75 mg at bedtime, venlafaxine 150 mg every morning, vitamin D3 at 5000 units daily, Flonase nasal spray 2 sprays in each naris at bedtime, pitavastatin 4 mg at bedtime, senna 1 tablet at bedtime, melatonin 3 mg at bedtime, ezetimibe 10 mg daily, albuterol sulfate inhaler 2.5 mg nebulized 4 times daily, cetirizine 10 mg every morning as needed, hydrocodone (Soso) 1 tablet every 4 hours as needed, meclizine 25 mg orally twice a day as needed, acetaminophen regular strength every 4 hours as needed. PHYSICAL EXAMINATION: He was examined on the day of discharge. VITAL SIGNS: Blood pressure 118/67, temperature 98.3 degrees Fahrenheit, pulse rate 68, respiratory rate 18, and oxygen saturation 94% on room air. GENERAL: Not in any acute distress. He is sitting comfortably in bed. HEENT: Not pale, anicteric. Moist mucous membranes. PERRLA. NECK: Supple. No JVD. CARDIOVASCULAR: S1 and S2 only. Regular rate and rhythm, no murmurs, rubs, or gallops. RESPIRATORY: Vesicular breath sounds with no wheezes, rales, or rhonchi. ABDOMEN: Soft, nontender, nondistended. Bowel sounds normoactive. No hepatosplenomegaly. MUSCULOSKELETAL: No edema. NEUROLOGIC: Awake, alert, and well oriented. No focal deficits. SKIN: Warm, dry, well-perfused. No rashes or lesions. PSYCHIATRIC: Normal mood and affect. LABORATORY DATA: WBC 6.8, hemoglobin 13, platelet count 149. Sodium 140, potassium 3.6, chloride 105, carbon dioxide 27, anion gap 12, BUN 18, creatinine 1.72, glucose 113, and calcium 9.1. IMAGING: Abdominal ultrasound, chest x-ray, echocardiogram. CONSULTS: Cardiology. PROCEDURES: None. DIET: Heart healthy, low sodium. CARE GOALS: To follow up with primary care physician within 1 week of discharge for repeat labs. ACTIVITY: To resume as tolerated. Discharge time 65 minutes including chart review and documentation. [facility] HOSPITALDenise
== END 2017-08-03 12:42 | disposition home health service (06) | DRG 871 ==
LOC: ERS 13:21 → ERHOLD 14:13 → 2NO 20:48
PROVIDERS: ADMIT Internal Medicine; ATTEND Internal Medicine
DX: A41.9 Sepsis, unspecified organism (principal); J18.9 Pneumonia, unspecified organism; I24.8 Other forms of acute ischemic heart disease; I25.10 Atherosclerotic heart disease of native coronary artery without angina pectoris; Z95.1 Presence of aortocoronary bypass graft; I12.9 Hypertensive chronic kidney disease with stage 1 through stage 4 chronic kidney disease, or unspecified chronic kidney disease; N18.3 Chronic kidney disease, stage 3 (moderate); N28.1 Cyst of kidney, acquired; E78.5 Hyperlipidemia, unspecified; K21.9 Gastro-esophageal reflux disease without esophagitis; Z88.0 Allergy status to penicillin; Z79.02 Long term (current) use of antithrombotics/antiplatelets; Z79.82 Long term (current) use of aspirin; Z79.899 Other long term (current) drug therapy
CPT/HCPCS: 36415; 36416; 71045; 76700; 80048; 80053; 80202; 81003; 81015; 83605; 84484; 85025; 87070; 87205; 93005; 93010; 93306; 94640; 96360; A4216; G8978-GP-CJ; G8979-GP-CJ; G8980-GP-CJ; J0360; J0692; J1644; J3370; J7050; J7611; J7626

== ENCOUNTER 2018-03-18 11:55 | Outpatient (CLI) | payer MEDICARE ==
--- NOTE | 2018-03-18 14:51 | ULT ---
LEFT LOWER EXTREMITY DOPPLER VENOUS ULTRASOUND: Date: 03/18/18 INDICATION: Left leg edema. TECHNIQUE: Ford scale, color Doppler, and vascular duplex with spectral analysis was performed of the deep venou s structures of the left lower extremity. The common femoral vein, superficial femoral vein, proximal greater saphenous vein, proximal greater profunda vein, popliteal, and posterior tibial veins were a ssessed. FINDINGS: There is partially occlusive thrombus seen involving the left superficial femoral vein through the le ft posterior tibial vein. The left common femoral vein, proximal greater saphenous vein, and left pro derrell vein and femoral vein demonstrate normal compression. IMPRESSION: Findings of nonocclusive thrombus seen from the proximal left superficial femoral vein through the le ft posterior tibial vein. Findings were relayed to the ordering physician by the social service technician. CODE CR. POS: CET
== END 2018-03-18 11:56 | disposition home or self-care (01) ==
LOC: BICULT 11:55
PROVIDERS: ATTEND Family Medicine
DX: R60.9 Edema, unspecified (principal); I82.412 Acute embolism and thrombosis of left femoral vein; I82.442 Acute embolism and thrombosis of left tibial vein

== ENCOUNTER 2018-08-01 13:32 | Inpatient (IN) | payer MEDICARE ==
--- NOTE | 2018-08-01 14:09 | RAD ---
EXAM: XR Ankle Rt 3 View STANDARD PROVIDED CLINICAL HISTORY: Pain COMPARISON: None FINDINGS: Displaced fractures of medial and lateral malleoli. Lateral dislocation of the talus with respect to the tibia. Fracture of the posterior malleolus is also suspected. IMPRESSION: Tibiotalar fracture dislocation.
[2018-08-01] MEDS ORDERED: Fentanyl 100 MCG/2 ML VIAL ONE (15:18)
[2018-08-01 15:46] LABS: #Basophils 0.1 thou/uL (0.0-0.2); #Eosinphils 0.1 thou/uL (0.0-0.7); #Lymphocytes 1.8 thou/uL (1.20-3.40); #Monocytes 0.8 thou/uL (0.11-0.59); %Basophils 0.9 % (0.0-1.0); %Eosinophils 1.2 % (0.0-10.0); %Lymphocytes 20.9 % (21.0-51.0); %Monocytes 9.2 % (0.0-10.0); %Neutrophils 67.8 % (42.0-75.0); Hemoglobin 13.8 g/dL (14.0-18.0); Mean Corpuscular HGB CONC 31.6 g/dL (32.0-36.0); Mean Corpuscular Hemoglobin 28.3 pg (27.0-31.0); Mean Corpuscular Volume 89.5 fL (78.0-98.0); Mean Platelet Volume 7.5 fL (7.4-10.4); Platelet Count 169 thou/uL (130-400); RBC Distribution Width 15.3 % (11.5-14.5); Red Blood Cell (RBC) Count 4.87 mill/uL (4.70-6.10); White Blood Cell (WBC) Count 8.8 thou/uL (4.8-10.8)
[2018-08-01 15:52] LABS: INR-International Normal Ratio 1.1; PTT 32.2 SEC (22.9-36.1); Prothrombin Time 14.6 SEC (12.0-14.7)
--- NOTE | 2018-08-01 15:58 | CT ---
Exam: CT brain PROVIDED CLINICAL HISTORY: Head injury COMPARISON: 06/17/2017 FINDINGS: The ventricular system is normal in size and morphology. No evidence for intracranial hemorrhage or mass effect. The extracranial soft tissues and osseous structures demonstrate no evidence for an acute abnormality. Chronic microvascular ischemic changes are again seen involving the cerebral white matter. IMPRESSION: No evidence for intracranial hemorrhage or mass effect.
[2018-08-01 16:11] LABS: ALT (SGPT) 17 U/L (8-55); AST (SGOT) 22 U/L (5-34); Albumin 3.8 g/dL (3.4-4.8); Alkaline Phosphatase 48 U/L (40-150); Anion Gap 13 mmol/L (10-20); BUN (Urea Nitrogen) 23 mg/dL (8.4-25.7); Bilirubin, Total 0.4 mg/dL (0.2-1.2); Calc. Creatinine Clearance 0 mL/min (70-130); Calcium 8.8 mg/dL (7.8-10.44); Carbon Dioxide 30 mmol/L (23-31); Chloride 100 mmol/L (98-107); Estimated GFR-MDRD 39; Globulin 2.7 g/dL (2.4-3.5); Glucose 178 mg/dL (83-110); Potassium 3.4 mmol/L (3.5-5.1); Protein, Total 6.5 g/dL (5.8-8.1); Sodium 140 mmol/L (136-145)
[2018-08-01] MEDS ORDERED: cloNIDine 0.1 MG TAB ONE (16:16)
--- NOTE | 2018-08-01 16:23 | RAD ---
XR Ankle Rt 2 View History: Post reduction Comparison: Ankle radiograph same day Findings: Improved alignment fracture dislocation of the ankle. Impression: Improved alignment of the fracture dislocation.
[2018-08-01] MEDS ORDERED: hydrALAZINE 20 MG/ML VIAL SLOW IVP PRN (16:29)
[2018-08-01] MEDS ORDERED: Ondansetron PF 4 MG/2 ML Vial IVP PRN (16:29)
[2018-08-01] MEDS ORDERED: Dextrose 50% Abboject 50 ML SYRINGE SLOW IVP PRN (16:29)
[2018-08-01] MEDS ORDERED: Dextrose 5% in Water 1,000 ML IV PRN (16:29)
[2018-08-01] MEDS ORDERED: Ondansetron ODT 4 MG TAB PO PRN (16:29)
[2018-08-01 16:31] LABS: CKMB 0.9 ng/mL (0-6.6)
[2018-08-01] MEDS ORDERED: Potassium Phosphate 30 MMOL in Sodium Chloride 0.9% 500 ML IVPB SCH (16:45)
[2018-08-01 16:49] LABS: Magnesium 2.1 mg/dL (1.6-2.6); Phosphorus 2.7 mg/dL (2.3-4.7)
--- NOTE | 2018-08-01 17:19 | RAD ---
XR Chest 1 View Portable History: Fall. Preop Comparison: Radiograph 2018 Findings: Lungs are clear. No pneumothorax. No effusion. Cardiac silhouette and mediastinal contours are similar. No acute osseous abnormality. Impression: No acute intrathoracic abnormality.
--- NOTE | 2018-08-01 17:32 | HP ---
REQUESTING PHYSICIAN: Dr. Perez. CONSULTANTS: Orthopedic Surgery, Dr. Reagan. HISTORY OF PRESENT ILLNESS: This is an 83-year-old gentleman, who was at his home as he was cleaning using Lysol on the tile floor when he slipped and fell. The patient did report hitting his head, but has no obvious injuries. The patient reported right ankle pain and deformity. The patient does take Eliquis. The patient was worked up in the emergency room and was found to have a right trimalleolar fracture. The patient also had a brain CT done with no acute findings. The patient denies any chest pain, shortness of breath, or dizziness prior to falling. MEDICATIONS: 1. Effexor 50 mg. 2. Carvedilol 12.5 mg b.i.d. 3. Protonix 40 mg daily. 4. Flomax 0.4 mg daily. 5. Zetia 10 mg daily. 6. Zyrtec 10 mg daily. 7. Aspirin 81 mg daily. 8. Keflex 500 mg b.i.d. before meals, the patient takes for bone infection. 9. Prednisone 10 mg daily. 10. Norvasc 5 mg daily. 11. Lasix 20 mg daily. 12. The patient does take Eliquis 5 mg daily. PAST MEDICAL HISTORY: Arthritis, BPH, hypertension, and coronary artery disease. PAST SURGICAL HISTORY: Right knee replacement x4, CABG, and 3-vessel bypass 6 years ago. ALLERGIES: MORPHINE, FENTANYL, TORADOL MAKES HIM HALLUCINATE, AND LEVOFLOXACIN. SOCIAL HISTORY: The patient lives at home with his . Denies alcohol use. Denies history of smoking. The patient does currently use smokeless tobacco. The patient ambulates with a walker or cane most times. REVIEW OF SYSTEMS: A 10-point review of systems is negative unless otherwise indicated in the above HPI. PHYSICAL EXAMINATION: VITAL SIGNS: Blood pressure 227/139, pulse 70, SpO2 of 96% on room air, respirations 17, and temperature 98.3. GENERAL: Elderly appearing male, no acute distress, hypertensive, reports not taking his blood pressure medicine this morning. HEENT: Head is atraumatic and normocephalic. Pupils are equal, round, and reactive at 2 mm bilateral. Mucous membranes are moist. Trachea is midline. NECK: Supple. No cervical tenderness. RESPIRATORY: Bilateral breath sounds clear to auscultation. Equal chest rise and fall. No respiratory distress. CARDIOVASCULAR: Regular rate, regular rhythm. Normal heart sounds. No pedal edema. ABDOMEN: Soft, nontender, and nondistended. EXTREMITIES: Right ankle splinted, positive sensation and movement to the extremities, distal pulses 2+ in all extremities. NEUROLOGIC: The patient oriented to person, time, place, and event. Speech is normal, GCS 15. LABORATORY DATA: WBC 8.8, RBC 4.87, hemoglobin 13.8, hematocrit 43.6, and platelets are 169. PT 14.6, INR 1.1, and APTT 32.2. Sodium 140, potassium 3.4, chloride 100, CO2 of 30, anion gap 13, BUN 23, creatinine 1.68, estimated GFR 39, glucose 178, calcium 8.8, AST 22, ALT 17, and alkaline phosphatase 48. CK-MB pending. Troponin I 0.036. Serum total protein 6.5, albumin 3.8, and globulin 2.7. DIAGNOSTIC DATA: Ankle x-ray, impression; displaced fractures of the medial and lateral malleoli. Lateral dislocation of the talus with respect to the tibia. Fracture of the posterior malleolus is also suspected. Brain CT; no evidence of intracranial hemorrhage or mass effect. Chest x-ray pending. IMPRESSION: 1. Status post mechanical fall. 2. Right trimalleolar fracture. 3. Hypertension, uncontrolled. 4. Hypokalemia. 5. Chronic kidney disease, stage 3. 6. History of coronary artery disease with bypass. PLAN: We will admit the patient to surgical ortho floor. We will place the patient on a pain regimen. Orthopedic Surgery, Dr. Reagan, has been consulted and plans for surgery in the next couple of days as the patient currently takes Eliquis. We will monitor the patient's elevated blood pressure and treat accordingly. We will repeat the patient's troponin as the first troponin is slightly elevated. The patient has no chest pain or shortness of breath. We will place a rehab screen as the patient will most likely need continued physical therapy postop. We will continue the patient's Keflex for right knee infection, in which the patient was told by Dr. Harmon that he will have to be on indefinitely. We will hold the patient's Eliquis until postop. We will place the patient on a bowel regimen and continue the patient's home Flomax. The plan will be discussed with the attending physician after this dictation. Job ID: [id number]
[2018-08-01] MEDS: Acetaminophen 500 MG TAB PO SCH ×2 (18:45→23:34)
[2018-08-01] MEDS: traMADol HCl 50 MG TAB PO SCH ×2 (18:45→23:32)
[2018-08-01] MEDS: Carvedilol 6.25 MG TAB PO SCH (18:46)
[2018-08-01 20:04] VITALS: BMI 27.6
[2018-08-01] MEDS: Sodium Chloride 0.9% 1,000 ML IV SCH (20:04)
[2018-08-01] MEDS: cloNIDine 0.2 MG TAB PO SCH (20:05)
[2018-08-01] MEDS: Senokot S 8.6-50 MG TAB PO SCH (20:05)
[2018-08-01] MEDS ORDERED: Prevnar 13-Val Conj/PF 0.5 ML SYRINGE IM ONE (21:45)
[2018-08-01] MEDS ORDERED: Ibuprofen 600 MG TAB PO SCH (22:00)
[2018-08-02] MEDS: traMADol HCl 50 MG TAB PO PRN ×2 (01:46→08:22)
--- NOTE | 2018-08-02 02:23 | CON ---
DATE OF CONSULTATION: CHIEF COMPLAINT: Right ankle pain. HISTORY OF PRESENT ILLNESS: Mr. Simeon is an 83-year-old male who was at home today. He was cleaning. He sprayed a Lysol type spray in the air. This caused his tile to become slippery. He slipped on the tile and fell. He dislocated and fractured his ankle. He also hit his head. He was taken to the emergency department. X-rays were obtained, which demonstrated an ankle fracture dislocation on the right side. CT scan of the brain was negative. He has been admitted to the hospital. He is comfortable currently. He has no complaints. He is talkative. PAST MEDICAL HISTORY: Osteoarthritis, benign prostatic hypertrophy, hypertension, history of coronary artery disease, and DVT. 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 ALLERGIES: MORPHINE, FENTANYL, TORADOL, AND LEVAQUIN. SOCIAL HISTORY: The patient lives independently with his . He uses a cane occasionally and a walker in the house. He denies alcohol or tobacco use. REVIEW OF SYSTEMS: Positive for right ankle pain with motion. Otherwise, negative 10-point review of systems. IMAGING: X-rays of the right ankle demonstrate a trimalleolar ankle fracture with dislocation initially, which has been partially reduced. The talus remains subluxated. PHYSICAL EXAMINATION: VITAL SIGNS: Temperature is 97.6, pulse is 66, respiratory rate is 18, oxygen saturation 94%, and blood pressure is 132/73. GENERAL: The patient is alert, lying supine, in no apparent distress. RESPIRATORY: Breathing comfortably. HEENT: Normocephalic and atraumatic. ABDOMEN: Soft, nontender, and nondistended. MUSCULOSKELETAL: The patient's right lower extremity is splinted. He is able to flex and extend the toes. 2-second capillary refill. Foot is warm and well perfused. Upper extremities are atraumatic. IMPRESSION: Right trimalleolar ankle fracture dislocation in an 83-year-old male. PLAN: At this point, the patient will need to go to the operating room tomorrow morning for open reduction and internal fixation of the ankle. We will hold his Eliquis. He will need to restart Eliquis postoperatively given that he has a history of DVT. He also has a history of coronary artery disease, although this has been addressed with a coronary artery bypass graft. He will be n.p.o. at midnight. I have reviewed risks and benefits of surgery. He is at increased risk of wound complication, dehiscence, infection, posttraumatic arthritis, nonunion, and others. Job ID: [id number]
[2018-08-02 04:39] LABS: #Eosinphils 0.2 thou/uL (0.0-0.7); #Lymphocytes 1.8 thou/uL (1.20-3.40); #Neutrophils 5.5 thou/uL (1.40-6.50); %Basophils 0.6 % (0.0-1.0); %Eosinophils 2.6 % (0.0-10.0); %Lymphocytes 20.6 % (21.0-51.0); %Monocytes 11.5 % (0.0-10.0); %Neutrophils 64.7 % (42.0-75.0); Hemoglobin 11.6 g/dL (14.0-18.0); Mean Corpuscular HGB CONC 31.9 g/dL (32.0-36.0); Mean Corpuscular Hemoglobin 28.8 pg (27.0-31.0); Mean Corpuscular Volume 90.2 fL (78.0-98.0); Mean Platelet Volume 7.4 fL (7.4-10.4); Platelet Count 141 thou/uL (130-400); RBC Distribution Width 15.4 % (11.5-14.5); Red Blood Cell (RBC) Count 4.01 mill/uL (4.70-6.10); White Blood Cell (WBC) Count 8.5 thou/uL (4.8-10.8)
[2018-08-02 04:46] LABS: INR-International Normal Ratio 1.1; PTT 33.6 SEC (22.9-36.1); Prothrombin Time 14.6 SEC (12.0-14.7)
[2018-08-02 04:56] LABS: Anion Gap 14 mmol/L (10-20); BUN (Urea Nitrogen) 28 mg/dL (8.4-25.7); Calc. Creatinine Clearance 38 mL/min (70-130); Calcium 8.2 mg/dL (7.8-10.44); Carbon Dioxide 28 mmol/L (23-31); Chloride 102 mmol/L (98-107); Estimated GFR-MDRD 33; Glucose 108 mg/dL (83-110); Potassium 3.7 mmol/L (3.5-5.1); Sodium 140 mmol/L (136-145)
[2018-08-02] MEDS: Acetaminophen 500 MG TAB PO SCH (05:47)
[2018-08-02] MEDS: traMADol HCl 50 MG TAB PO SCH ×4 (05:47→23:38)
[2018-08-02] MEDS: Carvedilol 6.25 MG TAB PO SCH ×2 (06:47→17:15)
[2018-08-02] MEDS: Sodium Chloride 0.9% 1,000 ML IV SCH ×3 (07:22→23:38)
[2018-08-02] MEDS ORDERED: CEFAZOLIN 2 GM in Premix Bag 1 BAG IVPB SCH (07:30)
[2018-08-02] MEDS: Tamsulosin HCl 0.4 MG CAP PO SCH (08:21)
[2018-08-02] MEDS: Polyethylene Glycol 3350 17 GM Packet PO SCH (08:47)
[2018-08-02] MEDS: Senokot S 8.6-50 MG TAB PO SCH ×2 (08:47→20:29)
[2018-08-02] MEDS: cloNIDine 0.2 MG TAB PO SCH ×2 (08:47→20:28)
[2018-08-02] MEDS: Amlodipine 5 MG TAB PO SCH (08:47)
[2018-08-02] MEDS ORDERED: Fentanyl 100 MCG/2 ML VIAL SLOW IVP SCH (10:45)
[2018-08-02] MEDS ORDERED: PHENYLEPHRINE-NS 100 MCG/ML 10 ML SYRINGE ONE (10:46)
[2018-08-02] MEDS ORDERED: ePHEDrine 50 MG/ML VIAL ONE (10:46)
[2018-08-02] MEDS: Acetaminophen 1,000 MG in Premix Bag 1 BAG IVPB SCH ×3 (12:17→23:38)
--- NOTE | 2018-08-02 12:44 | PRG ---
DATE OF SERVICE: 08/02/2018 SUBJECTIVE: An 83-year-old male hospital day #2, with trimalleolar fracture after a fall. Pain is not well controlled. He had nausea and vomiting this morning. Therefore, he was having difficulty taking p.o. medication. Otherwise, no overnight events. OBJECTIVE: VITAL SIGNS: Blood pressure 119/65, temperature 97.8, pulse 68, respirations 18, SpO2 94% on room air. GENERAL: Alert and oriented. HEENT: Atraumatic, normocephalic. NECK: Supple. Trachea midline. RESPIRATORY: No respiratory distress. Equal chest rise and fall. CARDIOVASCULAR: No pedal edema. ABDOMEN: Soft, nontender, nondistended. EXTREMITIES: Right ankle splinted. Able to wiggle toes. Distal pulses 2+. NEUROLOGIC: Alert and oriented. No focal deficits. LABORATORY DATA: Hemoglobin 11.6, hematocrit 36.2. INR 1.1, PTT 33.6, and PT 14.6. Sodium 140, potassium 3.7, creatinine 1.95. DIAGNOSTICS: There are no new diagnostics to review. IMPRESSION: 1. Status post mechanical fall. 2. Right trimalleolar fracture. 3. Hypertension. 4. Hypokalemia. 5. Chronic kidney disease 3. 6. Coronary artery disease, status post coronary artery bypass grafting. PLAN: We will give the patient fentanyl in addition to his pain regimen. He will be going to the OR today for surgical repair by Dr. Reagan, Orthopedic Surgery. He is currently n.p.o. In regard to the patient's elevated troponin, his second troponin did downtrend. The patient will need to receive physical and occupational therapy postop. Continue the patient's Keflex for right knee infection. Reported that Dr. Harmon would like him on it indefinitely. We will continue to hold Eliquis until postop. Continue the patient's bowel regimen. He is currently on normal saline at 100. There has been a rehab screen placed. The patient was seen and evaluated by Dr. Funk, during morning rounds. The plan was discussed with the patient, who is agreement with the plan. Job ID: [id number]
[2018-08-02] MEDS ORDERED: Dexamethasone 4 mg/ml Vial ONE (12:59)
[2018-08-02] MEDS ORDERED: Midazolam HCl 2 mg/2 ml Vial ONE (12:59)
[2018-08-02] MEDS ORDERED: Fentanyl 100 MCG/2 ML VIAL ONE ×2 (12:59→14:40)
[2018-08-02] MEDS ORDERED: Zolpidem Tartrate 5 MG TAB PO PRN (14:27)
[2018-08-02] MEDS ORDERED: traMADol HCl 50 MG TAB PO PRN ×2 (14:27)
[2018-08-02] MEDS ORDERED: Promethazine HCl 25 MG/ML VIAL IM PRN ×2 (14:27→15:57)
[2018-08-02] MEDS ORDERED: HYDROcodone/Acetaminophen 10/325 mg Tablet PO PRN ×2 (14:27)
[2018-08-02] MEDS ORDERED: Ropivacaine 0.2% 550 ML 550 ML NERVE BLCK SCH (14:27)
[2018-08-02] MEDS ORDERED: Ondansetron PF 4 MG/2 ML Vial IVP PRN (14:27)
[2018-08-02] MEDS ORDERED: Fentanyl 100 MCG/2 ML VIAL SLOW IVP PRN (14:28)
--- NOTE | 2018-08-02 15:48 | RAD ---
EXAM: 2 views of the right ankle COMPARISON: 08/01/2018 HISTORY: Bimalleolar ankle fracture FINDINGS/IMPRESSION: Limited intraoperative fluoroscopic views shows the patient is status post fixat ion of the medial malleolus fracture with 2 screws. A fracture of the distal fibula is fixated with a long intramedullary kandace.
[2018-08-02] MEDS ORDERED: Promethazine HCl 25 MG/ML VIAL SLOW IVP PRN (15:57)
[2018-08-02] MEDS ORDERED: Ondansetron HCl/PF 4 MG/2 ML Vial IVP PRN (15:57)
[2018-08-02] MEDS: CEFAZOLIN 2 GM in Premix Bag 1 BAG IVPB SCH (21:52)
--- NOTE | 2018-08-02 22:20 | OP ---
DATE OF PROCEDURE: 08/02/2018 PROCEDURE PERFORMED: Open reduction and internal fixation of right trimalleolar fracture. PREOPERATIVE DIAGNOSIS: Right trimalleolar ankle fracture dislocation. POSTOPERATIVE DIAGNOSIS: Right trimalleolar ankle fracture dislocation. COMPLICATIONS: None. ESTIMATED BLOOD LOSS: Minimal. IMPLANTS: Pickens kandace and two 4.0 mm screws were utilized from [employer]. INDICATIONS: Mr. Simeon is an 83-year-old male, who fell and fractured his ankle. He had a dislocation. He was indicated for open reduction and fixation of the ankle to restore alignment and promote healing. Risks have been reviewed in detail. Risks to include infection, wound complication, nerve or vascular injury, nonunion, malunion, and others. DESCRIPTION OF PROCEDURE: Mr. Siemon was identified in the preoperative holding area. His correct extremity was marked. He was carried to the operating room. He was positioned supine. General anesthesia was induced. A multidisciplinary time-out was performed. The right lower extremity was prepped and draped in sterile fashion. We began the procedure with evaluation of the patient's leg. He had severe blistering and swelling of his ankle. This was not a minimal to large incisions. We decided to perform more of a percutaneous procedure using Pickens kandace technique. I made a very small incision distal to the tip of the trochanter. We manipulated the fracture using traction and reduction, as well as x-ray to evaluate reduction. We then made a small incision and carried dissection deeply to the tip of the fibula. We used a 3.5 mm drill to make an entry hole in the fibula. At this point, we passed a Pickens kandace from the distal fibula proximally into the shaft of the fibula. This was seated with a tamp. We took x-ray images confirming this. The fibula was well reduced. At this point, we moved to the medial side. We made a small incision over the medial malleolus. We swept away tissue, which was in the fracture. We then reduced the fracture and held this with manual manipulation. We then placed two screws. These were 4.0 mm screws across the medial malleolar fracture fragment. These were seated appropriately. We took x-ray images confirming hardware placement was appropriate. At this point, the patient's wounds were thoroughly irrigated with copious lavage. We then closed with 2-0 Vicryl suture followed by nylon for the skin and sterile dressing was applied. The patient was taken to the recovery room in good condition after a well-padded splint was placed. Job ID: [id number]
[2018-08-03] MEDS: CEFAZOLIN 2 GM in Premix Bag 1 BAG IVPB SCH (05:14)
[2018-08-03] MEDS: traMADol HCl 50 MG TAB PO SCH ×4 (05:17→23:41)
[2018-08-03] MEDS: Acetaminophen 1,000 MG in Premix Bag 1 BAG IVPB SCH (05:17)
[2018-08-03] MEDS ORDERED: Meclizine HCl 25 MG TAB PO PRN ×2 (07:43→07:55)
[2018-08-03 08:10] LABS: #Eosinphils 0.1 thou/uL (0.0-0.7); #Lymphocytes 1.1 thou/uL (1.20-3.40); #Neutrophils 6.6 thou/uL (1.40-6.50); %Basophils 0.4 % (0.0-1.0); %Eosinophils 0.8 % (0.0-10.0); %Monocytes 11.4 % (0.0-10.0); %Neutrophils 74.5 % (42.0-75.0); Hemoglobin 11.5 g/dL (14.0-18.0); Mean Corpuscular HGB CONC 30.9 g/dL (32.0-36.0); Mean Corpuscular Hemoglobin 27.8 pg (27.0-31.0); Mean Platelet Volume 7.6 fL (7.4-10.4); Platelet Count 136 thou/uL (130-400); RBC Distribution Width 15.4 % (11.5-14.5); Red Blood Cell (RBC) Count 4.15 mill/uL (4.70-6.10); White Blood Cell (WBC) Count 8.8 thou/uL (4.8-10.8)
[2018-08-03 08:25] LABS: Anion Gap 10 mmol/L (10-20); BUN (Urea Nitrogen) 18 mg/dL (8.4-25.7); Calc. Creatinine Clearance 48 mL/min (70-130); Calcium 8.3 mg/dL (7.8-10.44); Carbon Dioxide 28 mmol/L (23-31); Chloride 104 mmol/L (98-107); Estimated GFR-MDRD 43; Glucose 101 mg/dL (83-110); Magnesium 1.7 mg/dL (1.6-2.6); Phosphorus 2.6 mg/dL (2.3-4.7); Sodium 138 mmol/L (136-145)
[2018-08-03] MEDS ORDERED: Cetirizine HCl 10 MG TAB PO SCH (09:00)
[2018-08-03] MEDS ORDERED: MULTIVITAMIN PO SCH (09:00)
[2018-08-03] MEDS ORDERED: Non-Formulary Item 1 EACH (Cephalexin [Keflex] 500 MG) PO SCH (09:00)
[2018-08-03] MEDS ORDERED: Non-Formulary Item 1 EACH (Prednisone [Prednisone] 10 MG) PO SCH (09:00)
[2018-08-03] MEDS: Acetaminophen 500 MG TAB PO SCH ×3 (09:40→20:56)
[2018-08-03] MEDS: Carvedilol 6.25 MG TAB PO SCH ×2 (09:41→18:34)
[2018-08-03] MEDS: Amlodipine 5 MG TAB PO SCH (09:42)
[2018-08-03] MEDS: Cephalexin 250 MG CAP PO SCH ×2 (09:42→21:58)
[2018-08-03] MEDS: Ezetimibe 10 MG TAB PO SCH (09:43)
[2018-08-03] MEDS: Loratadine 10 MG TAB PO SCH (09:43)
[2018-08-03] MEDS: Multivit, Therapeutic 1 TAB PO SCH (09:43)
[2018-08-03] MEDS: cloNIDine 0.2 MG TAB PO SCH (09:43)
[2018-08-03] MEDS: predniSONE 5 MG TAB PO SCH (09:44)
[2018-08-03] MEDS: Pantoprazole 40 MG GRANULES PACKET PO SCH (09:44)
[2018-08-03] MEDS: Senokot S 8.6-50 MG TAB PO SCH ×2 (09:44→21:59)
[2018-08-03] MEDS: Tamsulosin HCl 0.4 MG CAP PO SCH (09:45)
[2018-08-03] MEDS: sulfaSALAzine 500 MG TAB PO SCH ×2 (09:45→21:58)
[2018-08-03] MEDS: Venlafaxine HCl XR 150 MG CAP PO SCH (09:45)
[2018-08-03] MEDS: Polyethylene Glycol 3350 17 GM Packet PO SCH (10:00)
[2018-08-03] MEDS ORDERED: Ropivacaine 0.5% HCl/PF (150 MG/30 ML VIAL) ONE (10:27)
[2018-08-03] MEDS ORDERED: Bupivacaine HCl 0.5%/Epinephrine 1:200,000/PF 30 ml Vial ONE (10:27)
[2018-08-03] MEDS ORDERED: Magnesium 2 GM/50 ML 2 GM in Premix Bag 1 BAG IVPB SCH (13:00)
[2018-08-03] MEDS ORDERED: PHOS-NAK 1 PKT PACK PO SCH (13:00)
--- NOTE | 2018-08-03 17:18 | PRG ---
DATE OF SERVICE: 08/03/2018 SUBJECTIVE: The patient was seen this morning sitting up in bed. Reported pain was well controlled and he was tolerating his regular diet of breakfast this morning. Reported he did not sleep well overnight; for some reason, could not get to sleep, but could not further explain why. Denied any pain overnight or nightmares. Tolerating regular diet. Pain is well controlled. Denies nausea, vomiting, or diarrhea. Nursing reports the patient got clonidine this morning, however, states that he does not take that medication at home as previously sought and so it was discontinued. OBJECTIVE: VITAL SIGNS: Temperature 99.6, pulse 67, respirations 18, oxygen saturation 94% on room air, and blood pressure 142/63. GENERAL: Well-appearing elderly male, sitting up in bed with no signs of acute distress. RESPIRATORY: Equal chest rise and fall. Clear breath sounds bilaterally. No signs of acute respiratory distress. CARDIAC: Regular rate and rhythm. No murmurs, gallops, or rubs. GI: Abdomen is soft, nontender, nondistended. EXTREMITIES: 2+ pulses in all extremities. Right lower extremity with splint in place. It is clean, dry, and intact with no signs of oozing or infection. 2+ pulses in all extremities. Gross motor and sensation are intact. No significant swelling noted. NEUROLOGIC: GCS is 15. Gross motor and sensation intact. Pupils equal, round, reactive to light bilaterally. LABORATORY FINDINGS: White count 8.8, hemoglobin 11.5, hematocrit 37.3, and platelets 136. Sodium 138, potassium 4.0, chloride 104, carbon dioxide 28, BUN 18, creatinine 1.54, phosphorus 2.6, and magnesium 1.7. DIAGNOSTIC FINDINGS: Echo completed on 08/02/2018, demonstrates ejection fraction is visually estimated at 60% to 65%. Grade 1/3 diastolic dysfunction, mildly dilated left atrium, mitral annular calcification is present, aortic valve stenosis but opens well, tricuspid regurgitation. ASSESSMENT: 1. Status post mechanical fall, on Eliquis. 2. Right trimalleolar fracture, status post repair, postop #1. 3. History of arthritis, benign prostatic hyperplasia, hypertension, coronary artery disease, coronary artery bypass grafting x3, chronic kidney disease, and deep venous thromboses. PLAN: The patient will be started on the additional home medications to include Zetia, Flomax, Keflex, prednisone, and Eliquis today. We will continue to hold home Lasix. We will discontinue clonidine as that is not his home medications. We will also start home melatonin. The patient to work with Physical and Occupational Therapy today pending discharge to a rehab facility. The patient was seen and examined by Dr. Funk and myself this morning during rounds. Job ID: [id number] MTDD
[2018-08-03] MEDS ORDERED: Non-Formulary Item 1 EACH (Pitavastatin Calcium [Livalo] 4 MG) PO SCH (21:00)
[2018-08-03] MEDS ORDERED: Melatonin 3 MG TAB PO SCH (21:00)
[2018-08-03] MEDS ORDERED: Atorvastatin Calcium 20 MG TAB PO SCH (21:00)
[2018-08-03] MEDS ORDERED: Non-Formulary Item 1 EACH (Cholecalciferol (Vitamin D3) [Vitamin D3] 5,000 UNIT) PO SCH (21:00)
[2018-08-03] MEDS ORDERED: Fluticasone Propionate Nasal Spray 16 gm Bottle NASAL SCH ×2 (21:00)
[2018-08-03] MEDS: Apixaban 5 MG TAB PO SCH (21:58)
[2018-08-04] MEDS: Acetaminophen 500 MG TAB PO SCH ×3 (01:10→12:18)
[2018-08-04] MEDS: traMADol HCl 50 MG TAB PO SCH ×2 (05:46→12:18)
[2018-08-04 06:42] LABS: Anion Gap 9 mmol/L (10-20); BUN (Urea Nitrogen) 20 mg/dL (8.4-25.7); Calc. Creatinine Clearance 46 mL/min (70-130); Calcium 8.5 mg/dL (7.8-10.44); Carbon Dioxide 30 mmol/L (23-31); Chloride 105 mmol/L (98-107); Estimated GFR-MDRD 41; Glucose 99 mg/dL (83-110); Phosphorus 2.3 mg/dL (2.3-4.7); Potassium 3.8 mmol/L (3.5-5.1); Sodium 140 mmol/L (136-145)
[2018-08-04] MEDS ORDERED: PHOS-NAK 1 PKT PACK PO SCH (07:45)
[2018-08-04] MEDS ORDERED: Potassium Chloride 20 MEQ TAB PO SCH (07:45)
[2018-08-04] MEDS: Polyethylene Glycol 3350 17 GM Packet PO SCH (08:38)
[2018-08-04] MEDS: Venlafaxine HCl XR 150 MG CAP PO SCH (08:39)
[2018-08-04] MEDS: Pantoprazole 40 MG GRANULES PACKET PO SCH (08:39)
[2018-08-04] MEDS: Cephalexin 250 MG CAP PO SCH (08:39)
[2018-08-04] MEDS: sulfaSALAzine 500 MG TAB PO SCH (08:41)
[2018-08-04] MEDS: Apixaban 5 MG TAB PO SCH (08:41)
[2018-08-04] MEDS: Senokot S 8.6-50 MG TAB PO SCH (08:42)
[2018-08-04] MEDS: Ezetimibe 10 MG TAB PO SCH (08:42)
[2018-08-04] MEDS: Multivit, Therapeutic 1 TAB PO SCH (08:43)
[2018-08-04] MEDS: Loratadine 10 MG TAB PO SCH (08:44)
[2018-08-04] MEDS: predniSONE 5 MG TAB PO SCH (08:44)
[2018-08-04] MEDS: Carvedilol 6.25 MG TAB PO SCH (08:45)
[2018-08-04] MEDS: Tamsulosin HCl 0.4 MG CAP PO SCH (08:45)
[2018-08-04] MEDS: Amlodipine 5 MG TAB PO SCH (08:45)
[2018-08-04 11:07] VITALS: BP 136/71; TEMP 97.8
--- NOTE | 2018-08-05 06:44 | DIS ---
DATE OF ADMISSION: 08/01/2018 DATE OF DISCHARGE: 08/04/2018 ADMISSION DIAGNOSIS: Right trimalleolar fracture. DISCHARGE DIAGNOSIS: Trimalleolar fracture of ankle, postop day #2. CONSULTING PHYSICIAN: Miguel Reagan MD, [facility]. PROCEDURE: Open reduction internal fixation of trimalleolar fracture. HOSPITAL COURSE: An 83-year-old male patient comes in for evaluation of right ankle after a mechanical fall. The patient was diagnosed with right trimalleolar fracture. The patient was consulted with Dr. Reagan, and Dr. Reagan decided the patient is going to have surgery on August 02, 2018. The patient had surgery with Dr. Reagan on August 02, 2018. The patient had a uncomplicated postop. The patient had the ability to tolerate oral diet. Pain was well controlled. The patient was working with PT/OT . Otherwise he has no other complain. Home medications was resumed. The patient had rehabilitation screen for discharge today. DISCHARGE DISPOSITION: Rehabilitation facility. DISCHARGE CONDITION: Satisfactory. PHYSICAL EXAMINATION: GENERAL: The patient is a well appearing, elderly male sitting up in bed with no acute distress. VITAL SIGNS: Temperature 97.8 F, pulse 66 bpm , respirations 15 bpm, O2 sats 92 % on room air, blood pressure 136/71mmHg. LUNGS: Clear. CARDIAC: Regular rate and rhythm. No murmur. GI: Abdomen is soft, nontender, and nondistended. EXTREMITIES: Right lower extremity is clean, dry and intact with no sign of oozing or infection. He has positive pulse equally in all extremities. Gross motor and sensation are intact. No significant swelling noted. NEURO: GCS is 15. Gross motor and sensation intact. Pupils equal, round, and reactive to light bilaterally. LABORATORY DATA: Hemoglobin 11.5, white blood count 8.8, coagulation in normal range. Sodium is 140, potassium 3.8, creatinine is 1.6, glucose 99. DISCHARGE INSTRUCTIONS: Activity, orthopedic limitation with nonbearing weight of right lower extremity, keep clean, dry and elevated. Do not remove the splint. Regular diet. PT and OT needed. Equipment; walker. DISCHARGE MEDICATIONS: The patient is discharged with: 1. Tylenol for pain. 2. Amlodipine. 3. Eliquis. 4. Carvedilol. 5. Keflex. 6. Cetrizine. 7. Vitamin D2. 8. Ezetimibe. 9. Flonase. 10. Hydralazine. 11. Meclizine. 12. Effexor 13. Multivitamin. 14. Pantoprazole. 15. Prednisone. 16. Tamsulosin. 17. Tramadol. FOLLOWUP: 1. Follow up with Dr. Reagan in 14 days. 2. With primary care provider in 7 days. 3. Follow up with Dr. Gilbert Funk as needed. Please call with any question This is a summary of patient hospitalization. For full details please see medical records and this is in file. Job ID: [id number] MTDD
--- NOTE | 2018-08-06 09:29 | EKG ---
Test Reason : Blood Pressure : / mmHG Vent. Rate : 068 BPM Atrial Rate : 068 BPM P-R Int : 148 ms QRS Dur : 100 ms QT Int : 370 ms P-R-T Axes : 060 -10 104 degrees QTc Int : 393 ms Normal sinus rhythm Abnormal ECG Confirmed by DEMETRIUS BARBOZA, KIMBERLEE ([id number]), editor index OJ WILSON ([id number]) on 08/06/2018 9:29:32 AM Referred By: Confirmed By:KIMBERLEE ROMO MD
== END 2018-08-04 15:05 | DRG 494 ==
LOC: ERS 13:32 → SURG A 18:03
PROVIDERS: ADMIT Specialist; ATTEND Specialist
PROC: 0QSJ04Z Reposition Right Fibula with Internal Fixation Device, Open Approach (ICD-10-PCS; principal; 2018-08-02)
PROC: 0QSG04Z Reposition Right Tibia with Internal Fixation Device, Open Approach (ICD-10-PCS; 2018-08-02)
DX: S82.851A Displaced trimalleolar fracture of right lower leg, initial encounter for closed fracture (principal); W01.0XXA Fall on same level from slipping, tripping and stumbling without subsequent striking against object, initial encounter; E87.6 Hypokalemia; I12.9 Hypertensive chronic kidney disease with stage 1 through stage 4 chronic kidney disease, or unspecified chronic kidney disease; N18.3 Chronic kidney disease, stage 3 (moderate); N40.0 Benign prostatic hyperplasia without lower urinary tract symptoms; I25.10 Atherosclerotic heart disease of native coronary artery without angina pectoris; Z96.651 Presence of right artificial knee joint; E78.5 Hyperlipidemia, unspecified; M19.90 Unspecified osteoarthritis, unspecified site; Z95.1 Presence of aortocoronary bypass graft; Y92.009 Unspecified place in unspecified non-institutional (private) residence as the place of occurrence of the external cause; Z79.82 Long term (current) use of aspirin; Z79.899 Other long term (current) drug therapy; Z88.1 Allergy status to other antibiotic agents; Z88.5 Allergy status to narcotic agent; Z88.8 Allergy status to other drugs, medicaments and biological substances; Z86.718 Personal history of other venous thrombosis and embolism
CPT/HCPCS: 27818; 36415; 70450; 71045; 76000; 80048; 80053; 82553; 83735; 84100; 84484; 85025; 85610; 85730; 93005; 93306; 96374; A4306; C1713; G0390; J0131; J0360; J0670; J0690; J1100; J2250; J2405; J2795; J3010; J3475; J3490; J7050; J7512

== ENCOUNTER 2021-01-05 00:05 | Inpatient (IN) | payer MEDICARE ==
[2021-01-05 01:46] VITALS: BMI 25.3
[2021-01-05] MEDS ORDERED: Bisacodyl 5 MG TAB PO PRN (02:29)
[2021-01-05] MEDS ORDERED: Senokot S 8.6-50 MG TAB PO PRN (02:29)
[2021-01-05] MEDS ORDERED: Ondansetron PF 4 MG/2 ML Vial IVP PRN (02:29)
[2021-01-05] MEDS ORDERED: hydrALAZINE 20 MG/ML VIAL SLOW IVP PRN (02:29)
[2021-01-05] MEDS: Sodium Chloride 0.9% 1,000 ML IV SCH (02:58)
[2021-01-05] MEDS ORDERED: Enoxaparin Sodium 80 MG/0.8 ML SYRINGE SC SCH ×2 (03:00→21:00)
[2021-01-05] MEDS ORDERED: Dextrose 50% Abboject 50 ML SYRINGE SLOW IVP PRN (03:10)
[2021-01-05] MEDS ORDERED: HumaLOG 300 UNITS/3 ML VIAL SC PRN ×2 (03:10)
[2021-01-05] MEDS ORDERED: Dextrose 5% in Water 1,000 ML IV PRN (03:10)
[2021-01-05 05:18] LABS: #Basophils 0.1 thou/uL (0.0-0.2); #Lymphocytes 2.9 thou/uL (1.20-3.40); #Monocytes 1.2 thou/uL (0.11-0.59); #Neutrophils 8.7 thou/uL (1.40-6.50); %Basophils 0.4 % (0.0-1.0); %Eosinophils 0.3 % (0.0-10.0); %Lymphocytes 22.5 % (21.0-51.0); %Monocytes 9.3 % (0.0-10.0); %Neutrophils 67.4 % (42.0-75.0); Hemoglobin 13.6 g/dL (14.0-18.0); Mean Corpuscular HGB CONC 33.2 g/dL (32.0-36.0); Mean Corpuscular Volume 96.1 fL (78.0-98.0); Mean Platelet Volume 7.2 fL (7.4-10.4); Platelet Count 227 thou/uL (130-400); RBC Distribution Width 14.7 % (11.5-14.5); Red Blood Cell (RBC) Count 4.26 mill/uL (4.70-6.10)
[2021-01-05 05:30] LABS: Hemoglobin A1c 5.1 % (4.0-6.0)
[2021-01-05 05:41] LABS: Troponin I 0.096 ng/mL (< 0.028)
[2021-01-05 05:47] LABS: ALT (SGPT) 19 U/L (8-55); AST (SGOT) 23 U/L (5-34); Albumin 3.5 g/dL (3.4-4.8); Alkaline Phosphatase 55 U/L (40-110); Anion Gap 13 mmol/L (10-20); BUN (Urea Nitrogen) 28 mg/dL (8.4-25.7); Bilirubin, Total 0.5 mg/dL (0.2-1.2); Calc. Creatinine Clearance 36 mL/min (70-130); Calcium 8.6 mg/dL (7.8-10.44); Carbon Dioxide 26 mmol/L (23-31); Cardiac Risk 3.4 (Less than 4.5); Chloride 105 mmol/L (98-107); Cholesterol 179 mg/dl (< 200 Desired); Globulin 2.6 g/dL (2.4-3.5); Glucose 88 mg/dL (83-110); HDL Cholesterol 53 mg/dL (>60 Neg Risk); LDL Cholesterol, Calculated 113 mg/dL; Potassium 3.5 mmol/L (3.5-5.1); Protein, Total 6.1 g/dL (5.8-8.1); Sodium 140 mmol/L (136-145); Triglycerides 67 mg/dL (Less than 150)
[2021-01-05 08:08] LABS: #Basophils 0.1 thou/uL (0.0-0.2); #Lymphocytes 3.2 thou/uL (1.20-3.40); #Monocytes 1.3 thou/uL (0.11-0.59); #Neutrophils 7.9 thou/uL (1.40-6.50); %Basophils 0.7 % (0.0-1.0); %Eosinophils 0.3 % (0.0-10.0); %Lymphocytes 25.6 % (21.0-51.0); %Monocytes 10.5 % (0.0-10.0); %Neutrophils 62.8 % (42.0-75.0); Hemoglobin 13.4 g/dL (14.0-18.0); Mean Corpuscular HGB CONC 32.8 g/dL (32.0-36.0); Mean Corpuscular Hemoglobin 31.7 pg (27.0-31.0); Mean Corpuscular Volume 96.7 fL (78.0-98.0); Mean Platelet Volume 7.1 fL (7.4-10.4); Platelet Count 224 thou/uL (130-400); RBC Distribution Width 14.7 % (11.5-14.5); Red Blood Cell (RBC) Count 4.23 mill/uL (4.70-6.10); White Blood Cell (WBC) Count 12.6 thou/uL (4.8-10.8)
[2021-01-05 08:21] LABS: INR-International Normal Ratio 1.1; Prothrombin Time 13.9 sec (12.0-14.7)
[2021-01-05 08:22] LABS: PTT 46.1 sec (22.9-36.1)
[2021-01-05 08:28] LABS: ALT (SGPT) 18 U/L (8-55); AST (SGOT) 24 U/L (5-34); Albumin 3.5 g/dL (3.4-4.8); Alkaline Phosphatase 54 U/L (40-110); Anion Gap 15 mmol/L (10-20); BUN (Urea Nitrogen) 27 mg/dL (8.4-25.7); Bilirubin, Total 0.5 mg/dL (0.2-1.2); CK (CPK) 37 U/L (30-200); Calc. Creatinine Clearance 37 mL/min (70-130); Calcium 8.4 mg/dL (7.8-10.44); Carbon Dioxide 25 mmol/L (23-31); Chloride 105 mmol/L (98-107); Globulin 2.5 g/dL (2.4-3.5); Glucose 88 mg/dL (83-110); Potassium 3.3 mmol/L (3.5-5.1); Sodium 142 mmol/L (136-145)
[2021-01-05 08:32] LABS: Troponin I 0.156 ng/mL (< 0.028)
[2021-01-05 08:49] LABS: CKMB 1.5 ng/mL (0-6.6)
[2021-01-05] MEDS ORDERED: Aspirin 81 mg Enteric Coated Tablet PO SCH (09:30)
[2021-01-05] MEDS ORDERED: Lidocaine 5% Patch TD SCH (09:30)
[2021-01-05] MEDS: Famotidine 20 MG TAB PO SCH (10:23)
[2021-01-05] MEDS: hydrALAZINE 25 MG TAB PO SCH ×2 (14:37→20:31)
[2021-01-05] MEDS: Acetaminophen 325 MG TAB PO PRN ×3 (14:40→20:55)
[2021-01-05 16:28] LABS: SARS-CoV-2 PCR by NAA Not Detected (NotDetected)
[2021-01-05] MEDS: Enoxaparin Sodium 80 MG/0.8 ML SYRINGE SC SCH (20:29)
[2021-01-05] MEDS ORDERED: Amlodipine 5 MG TAB PO SCH (21:00)
[2021-01-05] MEDS ORDERED: Enoxaparin Sodium 40 MG/0.4 ML SYRINGE SC SCH (21:00)
[2021-01-05] MEDS ORDERED: Metoprolol Tartrate 25 MG TAB PO SCH (21:00)
[2021-01-05] MEDS ORDERED: Acetaminophen 325 MG TAB PO SCH (21:00)
[2021-01-05] MEDS ORDERED: Transdermal Patch Removal TOP SCH (21:00)
[2021-01-06] MEDS: Acetaminophen 325 MG TAB PO PRN ×2 (04:49→11:54)
[2021-01-06] MEDS: Enoxaparin Sodium 80 MG/0.8 ML SYRINGE SC SCH (08:45)
[2021-01-06] MEDS: Famotidine 20 MG TAB PO SCH (08:45)
[2021-01-06] MEDS: hydrALAZINE 25 MG TAB PO SCH (08:46)
[2021-01-06] MEDS ORDERED: Lidocaine 5% Patch TD SCH (09:00)
[2021-01-06] MEDS ORDERED: Apixaban 2.5 MG TAB PO SCH (09:00)
[2021-01-06] MEDS: Sodium Chloride 0.9% 1,000 ML IV SCH (09:00)
[2021-01-06] MEDS ORDERED: Carvedilol 6.25 MG TAB PO SCH (09:00)
[2021-01-06] MEDS ORDERED: Amlodipine 5 MG TAB PO SCH (09:00)
[2021-01-06] MEDS ORDERED: Aspirin 81 mg Enteric Coated Tablet PO SCH (09:00)
[2021-01-06] MEDS ORDERED: Aspirin 325 mg Enteric Coated Tablet PO SCH ×2 (09:00)
[2021-01-06 12:09] VITALS: BP 98/54; TEMP 98.2
[2021-01-08] MEDS ORDERED: FLU VACC QS2021-22(65YR UP)/PF 240 MCG/0.7 ML SYRINGE IM ONE (09:00)
== END 2021-01-06 13:20 | disposition home or self-care (01) | DRG 69 ==
LOC: 2SW 00:05 → OBSVTOIN 09:23 → 2SW 12:20
PROVIDERS: ADMIT Student in an Organized Health Care Education/Training Program; ATTEND Internal Medicine
DX: G45.9 Transient cerebral ischemic attack, unspecified (principal); I13.0 Hypertensive heart and chronic kidney disease with heart failure and stage 1 through stage 4 chronic kidney disease, or unspecified chronic kidney disease; I50.32 Chronic diastolic (congestive) heart failure; N17.9 Acute kidney failure, unspecified; I25.110 Atherosclerotic heart disease of native coronary artery with unstable angina pectoris; Z66 Do not resuscitate; Z20.822 Contact with and (suspected) exposure to COVID-19; N18.30 Chronic kidney disease, stage 3 unspecified; R78.5 Finding of other psychotropic drug in blood; E78.00 Pure hypercholesterolemia, unspecified; I25.10 Atherosclerotic heart disease of native coronary artery without angina pectoris; E78.5 Hyperlipidemia, unspecified; Z96.651 Presence of right artificial knee joint; I08.1 Rheumatic disorders of both mitral and tricuspid valves; F32.A Depression, unspecified; Z86.718 Personal history of other venous thrombosis and embolism; Z95.1 Presence of aortocoronary bypass graft; Z88.6 Allergy status to analgesic agent; Z88.1 Allergy status to other antibiotic agents; Z88.5 Allergy status to narcotic agent; Z88.8 Allergy status to other drugs, medicaments and biological substances; Z79.899 Other long term (current) drug therapy; Z79.82 Long term (current) use of aspirin; Z79.51 Long term (current) use of inhaled steroids; Z79.01 Long term (current) use of anticoagulants
CPT/HCPCS: 36415; 36416; 70450; 70551; 80053; 80061; 82550; 82553; 83036; 84443; 84484; 85025; 85610; 85730; 93306; J0360; J1650; J1815; J2405; J7050; U0003; U0005

== ENCOUNTER 2021-01-11 10:08 | Outpatient (CLI) | payer MEDICARE | END 2021-01-11 10:09 | disposition home or self-care (01) | LOC: BICMAMMO 10:08 | PROVIDERS: ATTEND Internal Medicine Rheumatology | DX: Z13.820 Encounter for screening for osteoporosis (principal); M15.8 Other polyosteoarthritis; M85.89 Other specified disorders of bone density and structure, multiple sites | CPT/HCPCS: 77080 ==

== ENCOUNTER 2021-01-29 12:36 | Inpatient (IN) | payer MEDICARE ==
[2021-01-29 13:13] LABS: #Eosinphils 0.1 thou/uL (0.0-0.7); #Lymphocytes 2.4 thou/uL (1.20-3.40); #Monocytes 0.8 thou/uL (0.11-0.59); #Neutrophils 4.7 thou/uL (1.40-6.50); %Basophils 0.6 % (0.0-1.0); %Eosinophils 1.8 % (0.0-10.0); %Lymphocytes 29.2 % (21.0-51.0); %Monocytes 10.3 % (0.0-10.0); %Neutrophils 58.2 % (42.0-75.0); Hemoglobin 14.6 g/dL (14.0-18.0); Mean Corpuscular HGB CONC 32.1 g/dL (32.0-36.0); Mean Corpuscular Hemoglobin 31.3 pg (27.0-31.0); Mean Corpuscular Volume 97.6 fL (78.0-98.0); Mean Platelet Volume 7.2 fL (7.4-10.4); Platelet Count 182 thou/uL (130-400); Red Blood Cell (RBC) Count 4.65 mill/uL (4.70-6.10); White Blood Cell (WBC) Count 8.1 thou/uL (4.8-10.8)
[2021-01-29 13:41] LABS: ALT (SGPT) 20 U/L (8-55); AST (SGOT) 30 U/L (5-34); Albumin 3.8 g/dL (3.4-4.8); Alkaline Phosphatase 53 U/L (40-110); Anion Gap 15 mmol/L (10-20); BUN (Urea Nitrogen) 19 mg/dL (8.4-25.7); Bilirubin, Total 0.6 mg/dL (0.2-1.2); Calc. Creatinine Clearance 0 mL/min (70-130); Calcium 8.9 mg/dL (7.8-10.44); Carbon Dioxide 26 mmol/L (23-31); Chloride 103 mmol/L (98-107); Globulin 2.9 g/dL (2.4-3.5); Glucose 137 mg/dL (83-110); Potassium 3.8 mmol/L (3.5-5.1); Protein, Total 6.7 g/dL (5.8-8.1); Sodium 140 mmol/L (136-145)
[2021-01-29] MEDS ORDERED: Aspirin Chewable 81 MG TAB ONE (13:59)
[2021-01-29 14:20] LABS: CKMB 13.8 ng/mL (0-6.6)
[2021-01-29] MEDS: Sodium Chloride 0.9% 1,000 ML IV SCH (15:48)
[2021-01-29] MEDS ORDERED: Acetaminophen 325 MG TAB PO PRN (16:00)
[2021-01-29] MEDS ORDERED: Ondansetron ODT 4 MG TAB SL PRN (16:00)
[2021-01-29] MEDS ORDERED: Ondansetron PF 4 MG/2 ML Vial IVP PRN (16:00)
[2021-01-29] MEDS: hydrALAZINE 20 MG/ML VIAL SLOW IVP PRN (17:02)
[2021-01-29 17:14] LABS: Troponin I 3.722 ng/mL (< 0.028)
[2021-01-29] MEDS ORDERED: Sodium Chloride 0.9% 1,000 ML IV SCH (19:15)
[2021-01-29] MEDS ORDERED: Heparin 10,000 UNITS/ 10 ML VIAL SLOW IVP SCH (19:15)
[2021-01-29] MEDS ORDERED: Heparin 25,000 units/D5W 500 ML IVPB SCH (19:15)
[2021-01-29] MEDS ORDERED: predniSONE 5 MG TAB PO SCH (19:15)
[2021-01-29] MEDS ORDERED: Communication Order-Pharmacy FS SCH (19:15)
[2021-01-29 19:34] LABS: Hemoglobin 13.9 g/dL (14.0-18.0); Platelet Count 187 thou/uL (130-400)
[2021-01-29 19:50] LABS: Troponin I 4.605 ng/mL (< 0.028)
[2021-01-30] MEDS ORDERED: Melatonin 3 MG TAB PO SCH (01:15)
[2021-01-30] MEDS: hydrALAZINE 20 MG/ML VIAL SLOW IVP PRN (03:23)
[2021-01-30] MEDS: Nitroglycerin 0.4 MG TAB (25 Tab Bottle) SL PRN ×5 (03:52→07:56)
[2021-01-30] MEDS: Sodium Chloride 0.9% 1,000 ML IV SCH ×3 (04:01→16:48)
[2021-01-30] MEDS ORDERED: Sodium Chloride 0.9% 1,000 ML IV SCH (06:00)
[2021-01-30] MEDS: Carvedilol 25 MG TAB PO SCH ×2 (07:06→16:48)
[2021-01-30] MEDS: Tamsulosin HCl 0.4 MG CAP PO SCH (07:06)
[2021-01-30] MEDS: Amlodipine 5 MG TAB PO SCH (07:06)
[2021-01-30] MEDS: Ezetimibe 10 MG TAB PO SCH (07:06)
[2021-01-30] MEDS: Pantoprazole 40 MG GRANULES PACKET PO SCH (07:07)
[2021-01-30 07:30] LABS: SARS-CoV-2 NAA Rapid Test Not Detected (NotDetected)
[2021-01-30] MEDS ORDERED: Heparin 10,000 UNITS/ 10 ML VIAL ONE (07:57)
[2021-01-30] MEDS ORDERED: Norepinephrine 4 MG/4 ML VIAL ONE (07:57)
[2021-01-30 08:09] LABS: #Eosinphils 0.1 thou/uL (0.0-0.7); #Lymphocytes 1.7 thou/uL (1.20-3.40); #Monocytes 0.9 thou/uL (0.11-0.59); %Basophils 0.5 % (0.0-1.0); %Eosinophils 1.6 % (0.0-10.0); %Lymphocytes 22.3 % (21.0-51.0); %Monocytes 11.3 % (0.0-10.0); %Neutrophils 64.3 % (42.0-75.0); Hemoglobin 13.2 g/dL (14.0-18.0); Mean Corpuscular HGB CONC 31.9 g/dL (32.0-36.0); Mean Corpuscular Hemoglobin 30.8 pg (27.0-31.0); Mean Corpuscular Volume 96.6 fL (78.0-98.0); Mean Platelet Volume 7.1 fL (7.4-10.4); Platelet Count 167 thou/uL (130-400); RBC Distribution Width 12.8 % (11.5-14.5); Red Blood Cell (RBC) Count 4.28 mill/uL (4.70-6.10); White Blood Cell (WBC) Count 7.8 thou/uL (4.8-10.8)
[2021-01-30] MEDS ORDERED: Fentanyl 100 MCG/2 ML VIAL ONE (08:19)
[2021-01-30] MEDS ORDERED: Midazolam HCl 2 mg/2 ml Vial ONE (08:19)
[2021-01-30 08:32] LABS: Anion Gap 12 mmol/L (10-20); BUN (Urea Nitrogen) 18 mg/dL (8.4-25.7); Calc. Creatinine Clearance 35 mL/min (70-130); Calcium 8.5 mg/dL (7.8-10.44); Carbon Dioxide 24 mmol/L (23-31); Chloride 106 mmol/L (98-107); Glucose 126 mg/dL (83-110); Potassium 3.4 mmol/L (3.5-5.1); Sodium 139 mmol/L (136-145)
[2021-01-30] MEDS ORDERED: Iopamidol 370 76% 50 ML VIAL FS ONE (08:38)
[2021-01-30] MEDS ORDERED: Iopamidol 370 76% 100 ML VIAL ONE (08:38)
[2021-01-30] MEDS ORDERED: Potassium Chloride 20 MEQ TAB PO SCH (08:45)
[2021-01-30] MEDS ORDERED: Aspirin Chewable 81 MG TAB PO SCH (09:00)
[2021-01-30] MEDS ORDERED: Venlafaxine HCl XR 150 MG CAP PO SCH (09:00)
[2021-01-30] MEDS ORDERED: Aggrastat 12.5 MG/250 ML 250 ML ONE (09:24)
[2021-01-30] MEDS ORDERED: Adenosine 6 MG/2 ML VIAL ONE (09:34)
[2021-01-30] MEDS ORDERED: Verapamil 5 MG/2 ML VIAL ONE (09:35)
[2021-01-30] MEDS ORDERED: Nitroglycerin 100MG/250ML BOT 250 ML ONE (09:35)
[2021-01-30] MEDS ORDERED: Clopidogrel Bisulfate 300 MG TAB ONE (09:46)
[2021-01-30 11:32] LABS: CKMB 51.1 ng/mL (0-6.6)
[2021-01-30] MEDS ORDERED: Aggrastat 12.5 MG/250 ML 250 ML IVPB SCH (14:15)
[2021-01-31] MEDS: Acetaminophen 325 MG TAB PO PRN ×2 (03:15→20:59)
[2021-01-31 03:34] LABS: #Eosinphils 0.1 thou/uL (0.0-0.7); #Lymphocytes 1.7 thou/uL (1.20-3.40); #Neutrophils 5.4 thou/uL (1.40-6.50); %Basophils 0.6 % (0.0-1.0); %Eosinophils 0.7 % (0.0-10.0); %Lymphocytes 20.8 % (21.0-51.0); %Monocytes 12.1 % (0.0-10.0); %Neutrophils 65.8 % (42.0-75.0); Hemoglobin 12.7 g/dL (14.0-18.0); Mean Corpuscular HGB CONC 33.2 g/dL (32.0-36.0); Mean Corpuscular Hemoglobin 32.2 pg (27.0-31.0); Mean Platelet Volume 7.2 fL (7.4-10.4); Platelet Count 153 thou/uL (130-400); RBC Distribution Width 12.9 % (11.5-14.5); Red Blood Cell (RBC) Count 3.93 mill/uL (4.70-6.10); White Blood Cell (WBC) Count 8.2 thou/uL (4.8-10.8)
[2021-01-31 03:56] LABS: ALT (SGPT) 22 U/L (8-55); AST (SGOT) 83 U/L (5-34); Albumin 3.1 g/dL (3.4-4.8); Alkaline Phosphatase 46 U/L (40-110); Anion Gap 14 mmol/L (10-20); BUN (Urea Nitrogen) 19 mg/dL (8.4-25.7); Bilirubin, Total 0.7 mg/dL (0.2-1.2); Calc. Creatinine Clearance 36 mL/min (70-130); Calcium 8.1 mg/dL (7.8-10.44); Carbon Dioxide 24 mmol/L (23-31); Chloride 107 mmol/L (98-107); Globulin 2.7 g/dL (2.4-3.5); Glucose 109 mg/dL (83-110); Potassium 3.5 mmol/L (3.5-5.1); Protein, Total 5.8 g/dL (5.8-8.1); Sodium 141 mmol/L (136-145)
[2021-01-31] MEDS: hydrALAZINE 20 MG/ML VIAL SLOW IVP PRN (03:59)
[2021-01-31] MEDS: Pantoprazole 40 MG GRANULES PACKET PO SCH (08:10)
[2021-01-31] MEDS: Clopidogrel Bisulfate 75 MG TAB PO SCH (08:11)
[2021-01-31] MEDS: Tamsulosin HCl 0.4 MG CAP PO SCH (08:11)
[2021-01-31] MEDS: Carvedilol 25 MG TAB PO SCH ×2 (08:11→16:50)
[2021-01-31] MEDS: Ezetimibe 10 MG TAB PO SCH (08:11)
[2021-01-31] MEDS: Amlodipine 5 MG TAB PO SCH (08:12)
[2021-01-31] MEDS ORDERED: Aspirin Chewable 81 MG TAB PO SCH (09:00)
[2021-01-31 14:10] VITALS: BMI 24.7
[2021-01-31] MEDS: Apixaban 2.5 MG TAB PO SCH (20:59)
[2021-02-01] MEDS ORDERED: Melatonin 3 MG TAB PO SCH ×2 (03:30→21:00)
[2021-02-01] MEDS ORDERED: Amlodipine 5 MG TAB PO SCH (07:57)
[2021-02-01 08:17] VITALS: BP 139/94; TEMP 98.3
[2021-02-01] MEDS: Apixaban 2.5 MG TAB PO SCH (09:18)
[2021-02-01] MEDS: Ezetimibe 10 MG TAB PO SCH (09:18)
[2021-02-01] MEDS: Tamsulosin HCl 0.4 MG CAP PO SCH (09:18)
[2021-02-01] MEDS: Clopidogrel Bisulfate 75 MG TAB PO SCH (09:19)
[2021-02-01] MEDS: Carvedilol 25 MG TAB PO SCH (09:19)
[2021-02-01] MEDS: Pantoprazole 40 MG GRANULES PACKET PO SCH (09:19)
[2021-02-01] MEDS ORDERED: FLU VACC QS2021-22(65YR UP)/PF 240 MCG/0.7 ML SYRINGE IM ONE (18:45)
== END 2021-02-01 11:15 | disposition home or self-care (01) | DRG 246 ==
LOC: ERS 12:36 → 2NO 14:29 → CCU 01-30 09:46 → 2NO 01-31 17:23
PROVIDERS: ADMIT Internal Medicine; ATTEND Internal Medicine
PROC: 027035Z Dilation of Coronary Artery, One Artery with Two Drug-eluting Intraluminal Devices, Percutaneous Approach (ICD-10-PCS; principal; 2021-01-30)
PROC: 4A023N7 Measurement of Cardiac Sampling and Pressure, Left Heart, Percutaneous Approach (ICD-10-PCS; 2021-01-30)
PROC: B2111ZZ Fluoroscopy of Multiple Coronary Arteries using Low Osmolar Contrast (ICD-10-PCS; 2021-01-30)
PROC: B2181ZZ Fluoroscopy of Left Internal Mammary Bypass Graft using Low Osmolar Contrast (ICD-10-PCS; 2021-01-30)
PROC: B21F1ZZ Fluoroscopy of Other Bypass Graft using Low Osmolar Contrast (ICD-10-PCS; 2021-01-30)
PROC: 3E033PZ Introduction of Platelet Inhibitor into Peripheral Vein, Percutaneous Approach (ICD-10-PCS; 2021-01-30)
DX: T82.867A Thrombosis due to cardiac prosthetic devices, implants and grafts, initial encounter (principal); I21.4 Non-ST elevation (NSTEMI) myocardial infarction; N18.4 Chronic kidney disease, stage 4 (severe); N17.9 Acute kidney failure, unspecified; I25.710 Atherosclerosis of autologous vein coronary artery bypass graft(s) with unstable angina pectoris; Z20.822 Contact with and (suspected) exposure to COVID-19; I12.9 Hypertensive chronic kidney disease with stage 1 through stage 4 chronic kidney disease, or unspecified chronic kidney disease; E78.00 Pure hypercholesterolemia, unspecified; E78.5 Hyperlipidemia, unspecified; F32.A Depression, unspecified; I48.91 Unspecified atrial fibrillation; E11.22 Type 2 diabetes mellitus with diabetic chronic kidney disease; K22.70 Barrett's esophagus without dysplasia; Z96.651 Presence of right artificial knee joint; Y83.2 Surgical operation with anastomosis, bypass or graft as the cause of abnormal reaction of the patient, or of later complication, without mention of misadventure at the time of the procedure; K57.30 Diverticulosis of large intestine without perforation or abscess without bleeding; F17.290 Nicotine dependence, other tobacco product, uncomplicated; Z95.1 Presence of aortocoronary bypass graft; Z88.6 Allergy status to analgesic agent; Z88.1 Allergy status to other antibiotic agents; Z88.5 Allergy status to narcotic agent; Z88.8 Allergy status to other drugs, medicaments and biological substances; Z79.899 Other long term (current) drug therapy; Z79.82 Long term (current) use of aspirin; Z79.51 Long term (current) use of inhaled steroids; Z79.01 Long term (current) use of anticoagulants; Z79.52 Long term (current) use of systemic steroids; Z86.718 Personal history of other venous thrombosis and embolism; Z86.73 Personal history of transient ischemic attack (TIA), and cerebral infarction without residual deficits
CPT/HCPCS: 36415; 36416; 71045; 80048; 80053; 82553; 82565; 84450; 84484; 85025; 85347; 85730; 92937; 93005; 93010; 93455; 93798; 99152; 99153; C1725; C1757; C1769; C1874; C9604; J0153; J0360; J1644; J2250; J3010; J3246; J7050; Q9967; U0002

== ENCOUNTER 2022-01-06 13:09 | Emergency (ER) | payer MEDICARE ==
[2022-01-06 14:10] LABS: #Eosinphils 0.1 thou/uL (0.0-0.7); #Lymphocytes 1.3 thou/uL (1.20-3.40); #Monocytes 1.3 thou/uL (0.11-0.59); #Neutrophils 8.3 thou/uL (1.40-6.50); %Basophils 0.3 % (0.0-1.0); %Eosinophils 0.7 % (0.0-10.0); %Lymphocytes 12.2 % (21.0-51.0); %Monocytes 11.8 % (0.0-10.0); Hemoglobin 13.2 g/dL (14.0-18.0); Mean Corpuscular HGB CONC 31.5 g/dL (32.0-36.0); Mean Corpuscular Hemoglobin 28.5 pg (27.0-31.0); Mean Corpuscular Volume 90.5 fl (78.0-98.0); Mean Platelet Volume 7.4 fL (7.4-10.4); Platelet Count 225 10x3/uL (130-400); Red Blood Cell (RBC) Count 4.62 mill/uL (4.70-6.10)
[2022-01-06 14:45] LABS: ALT (SGPT) 14 U/L (8-55); AST (SGOT) 26 U/L (5-34); Albumin 3.6 g/dL (3.4-4.8); Alkaline Phosphatase 59 U/L (40-110); Anion Gap 16 mmol/L (10-20); BUN (Urea Nitrogen) 31 mg/dL (8.4-25.7); Bilirubin, Total 0.6 mg/dL (0.2-1.2); CK (CPK) 120 U/L (30-200); Calc. Creatinine Clearance 0 mL/min (70-130); Calcium 9.1 mg/dL (7.8-10.44); Carbon Dioxide 26 mmol/L (23-31); Chloride 103 mmol/L (98-107); Estimated GFR 24; Globulin 4.1 g/dL (2.4-3.5); Glucose 129 mg/dL (83-110); Potassium 4.3 mmol/L (3.5-5.1); Protein, Total 7.7 g/dL (5.8-8.1); Sodium 141 mmol/L (136-145)
[2022-01-06] MEDS ORDERED: Ondansetron PF 4 MG/2 ML Vial ONE (14:45)
[2022-01-06] MEDS ORDERED: Morphine 4 MG/ML VIAL ONE (14:45)
[2022-01-06] MEDS ORDERED: hydrALAZINE 20 MG/ML VIAL ONE (18:50)
== END 2022-01-06 21:11 ==
LOC: ERS 13:09
DX: S32.039A Unspecified fracture of third lumbar vertebra, initial encounter for closed fracture (principal); S32.049A Unspecified fracture of fourth lumbar vertebra, initial encounter for closed fracture; I12.9 Hypertensive chronic kidney disease with stage 1 through stage 4 chronic kidney disease, or unspecified chronic kidney disease; E11.22 Type 2 diabetes mellitus with diabetic chronic kidney disease; N18.30 Chronic kidney disease, stage 3 unspecified; E78.00 Pure hypercholesterolemia, unspecified; I25.10 Atherosclerotic heart disease of native coronary artery without angina pectoris; F17.220 Nicotine dependence, chewing tobacco, uncomplicated; W18.30XA Fall on same level, unspecified, initial encounter
CPT/HCPCS: 36415; 80053; 82550; 85025; 93005; 96374; 96375; J0360; J2270; J2405

== ENCOUNTER 2022-02-02 11:13 | Inpatient (IN) | payer MEDICARE ==
[2022-02-02] MEDS ORDERED: Sodium Chloride 0.9% 1,000 ML IV SCH (13:30)
[2022-02-02] MEDS ORDERED: Ondansetron ODT 4 MG TAB PO PRN (13:30)
[2022-02-02] MEDS ORDERED: Ondansetron PF 4 MG/2 ML Vial IVP PRN (13:30)
[2022-02-02] MEDS ORDERED: Nitroglycerin 2% Ointment 1 INCH/1 GM Packet ONE (13:44)
[2022-02-02 16:34] VITALS: BMI 22.4
[2022-02-02] MEDS ORDERED: HumaLOG 300 UNITS/3 ML VIAL SC PRN ×2 (17:17)
[2022-02-02] MEDS ORDERED: Dextrose 50% Abboject 50 ML SYRINGE SLOW IVP PRN (17:17)
[2022-02-02] MEDS ORDERED: Dextrose 5% in Water 1,000 ML IV PRN (17:17)
[2022-02-02] MEDS: Heparin 5,000 UNITS/ML VIAL SC SCH ×2 (17:50→21:30)
[2022-02-02 19:42] LABS: Magnesium 1.8 mg/dL (1.6-2.6)
[2022-02-02 19:52] LABS: Critical Call Chem Troponin I RESULT DECREASING; Troponin I 2.505 ng/mL (< 0.028)
[2022-02-02] MEDS: Acetaminophen 325 MG TAB PO PRN (23:32)
[2022-02-03 01:58] LABS: Critical Call Chem Troponin I RESULT DECREASING; Troponin I 2.229 ng/mL (< 0.028)
[2022-02-03 02:04] LABS: Band 7 % (5-11); Hemoglobin 9.7 g/dL (14.0-18.0); Lymphocytes 16 % (21-51); MDiff Complete? YES; Mean Corpuscular HGB CONC 31.5 g/dL (32.0-36.0); Mean Corpuscular Hemoglobin 28.3 pg (27.0-31.0); Mean Platelet Volume 6.9 fL (7.4-10.4); Monocytes 7 % (0-10); Neutrophil 70 % (42-75); Platelet Count 287 10x3/uL (130-400); Platelet Morphology Comment Appears Adequate; RBC Distribution Width 16.5 % (11.5-14.5); RBC Morphology Normal; Red Blood Cell (RBC) Count 3.42 mill/uL (4.70-6.10); White Blood Cell (WBC) Count 7.3 10x3/uL (4.8-10.8)
[2022-02-03 02:22] LABS: Anion Gap 17 mmol/L (10-20); BUN (Urea Nitrogen) 27 mg/dL (8.4-25.7); Calc. Creatinine Clearance 25 mL/min (70-130); Calcium 8.6 mg/dL (7.8-10.44); Carbon Dioxide 20 mmol/L (23-31); Chloride 106 mmol/L (98-107); Estimated GFR 27; Glucose 93 mg/dL (83-110); Sodium 139 mmol/L (136-145)
[2022-02-03] MEDS ORDERED: Sodium Chloride 0.9% 1,000 ML IV SCH (07:14)
[2022-02-03] MEDS ORDERED: Heparin 25,000 units/D5W 500 ML IVPB SCH (07:15)
[2022-02-03 08:02] LABS: Hemoglobin 10.9 g/dL (14.0-18.0); Platelet Count 293 10x3/uL (130-400)
[2022-02-03] MEDS: Pantoprazole 40 MG VIAL IVP SCH (08:40)
[2022-02-03] MEDS: Carvedilol 6.25 MG TAB PO SCH ×2 (08:40→17:37)
[2022-02-03] MEDS: Aspirin Chewable 81 MG TAB PO SCH (08:40)
[2022-02-03] MEDS: Heparin 10,000 UNITS/ 10 ML VIAL SLOW IVP SCH (08:44)
[2022-02-03] MEDS: Atorvastatin Calcium 40 MG TAB PO SCH (21:33)
[2022-02-03] MEDS: Acetaminophen 325 MG TAB PO PRN (21:39)
[2022-02-04 01:51] LABS: Hemoglobin 9.7 g/dL (14.0-18.0); Mean Corpuscular HGB CONC 32.1 g/dL (32.0-36.0); Mean Corpuscular Volume 90.3 fl (78.0-98.0); Mean Platelet Volume 7.2 fL (7.4-10.4); Platelet Count 234 10x3/uL (130-400); RBC Distribution Width 16.6 % (11.5-14.5); Red Blood Cell (RBC) Count 3.33 mill/uL (4.70-6.10); White Blood Cell (WBC) Count 6.6 10x3/uL (4.8-10.8)
[2022-02-04 02:15] LABS: Anion Gap 12 mmol/L (10-20); BUN (Urea Nitrogen) 25 mg/dL (8.4-25.7); Calc. Creatinine Clearance 27 mL/min (70-130); Calcium 8.6 mg/dL (7.8-10.44); Carbon Dioxide 24 mmol/L (23-31); Chloride 106 mmol/L (98-107); Estimated GFR 30; Glucose 97 mg/dL (83-110); MDiff Complete? YES; Sodium 138 mmol/L (136-145)
[2022-02-04 02:16] LABS: Anisocytosis SLIGHT = 6-15 cells (100X) (0-5/hpf); Lymphocytes 25 % (21-51); Monocytes 13 % (0-10); Neutrophil 60 % (42-75); Platelet Morphology Comment Appears Adequate
[2022-02-04] MEDS ORDERED: Nitroglycerin 0.4 MG TAB (25 Tab Bottle) SL PRN (07:27)
[2022-02-04] MEDS ORDERED: Magnesium 2 GM/50 ML(in water) 2 GM in Premix Bag 1 BAG IVPB SCH (08:00)
[2022-02-04] MEDS: Aspirin Chewable 81 MG TAB PO SCH (09:29)
[2022-02-04] MEDS: Carvedilol 6.25 MG TAB PO SCH ×2 (09:29→17:22)
[2022-02-04] MEDS: Pantoprazole 40 MG VIAL IVP SCH (09:30)
[2022-02-04] MEDS: Acetaminophen 325 MG TAB PO PRN ×2 (09:46→20:00)
[2022-02-04] MEDS: Senokot S 8.6-50 MG TAB PO SCH (20:00)
[2022-02-04] MEDS: Atorvastatin Calcium 40 MG TAB PO SCH (20:00)
[2022-02-04] MEDS: Folic Acid/Vit B Comp W-C PO SCH (20:00)
[2022-02-05 04:36] LABS: Hemoglobin 10.1 g/dL (14.0-18.0); Mean Corpuscular HGB CONC 32.5 g/dL (32.0-36.0); Mean Corpuscular Hemoglobin 29.1 pg (27.0-31.0); Mean Corpuscular Volume 89.7 fl (78.0-98.0); Platelet Count 250 10x3/uL (130-400); RBC Distribution Width 16.5 % (11.5-14.5); Red Blood Cell (RBC) Count 3.48 mill/uL (4.70-6.10); White Blood Cell (WBC) Count 8.7 10x3/uL (4.8-10.8)
[2022-02-05 04:41] LABS: Anion Gap 14 mmol/L (10-20); BUN (Urea Nitrogen) 31 mg/dL (8.4-25.7); Calc. Creatinine Clearance 25 mL/min (70-130); Calcium 8.7 mg/dL (7.8-10.44); Carbon Dioxide 21 mmol/L (23-31); Chloride 104 mmol/L (98-107); Estimated GFR 28; Glucose 125 mg/dL (83-110); Sodium 135 mmol/L (136-145)
[2022-02-05 05:00] LABS: Hypochromia SLIGHT = 6-15 cells (100X) (0-5/hpf); Lymphocytes 26 % (21-51); MDiff Complete? YES; Monocytes 12 % (0-10); Neutrophil 61 % (42-75); Platelet Morphology Comment Appears Adequate; Reactive Lymphocytes 1 % (0-10)
[2022-02-05] MEDS: Carvedilol 6.25 MG TAB PO SCH ×2 (10:05→17:19)
[2022-02-05] MEDS: Senokot S 8.6-50 MG TAB PO SCH ×2 (10:05→22:32)
[2022-02-05] MEDS: Aspirin Chewable 81 MG TAB PO SCH (10:05)
[2022-02-05] MEDS: Heparin 10,000 UNITS/ 10 ML VIAL SLOW IVP SCH (10:34)
[2022-02-05] MEDS: Diclofenac 1% 100 GM GEL TP SCH ×3 (11:15→22:32)
[2022-02-05] MEDS: Folic Acid/Vit B Comp W-C PO SCH (22:30)
[2022-02-05] MEDS: sulfaSALAzine 500 MG TAB PO SCH (22:31)
[2022-02-05] MEDS: Acetaminophen 325 MG TAB PO PRN (22:31)
[2022-02-05] MEDS: Atorvastatin Calcium 40 MG TAB PO SCH (22:32)
[2022-02-05] MEDS: Docusate 100 MG CAP PO SCH (22:34)
[2022-02-05] MEDS ORDERED: Midodrine HCl 5 MG TAB PO SCH (23:59)
[2022-02-06] MEDS ORDERED: Sodium Chloride 0.9% 250 ML IV SCH (00:15)
[2022-02-06 01:06] LABS: Hemoglobin 8.9 g/dL (14.0-18.0); Mean Corpuscular HGB CONC 31.5 g/dL (32.0-36.0); Mean Corpuscular Hemoglobin 28.1 pg (27.0-31.0); Mean Corpuscular Volume 89.2 fl (78.0-98.0); Mean Platelet Volume 7.3 fL (7.4-10.4); Platelet Count 217 10x3/uL (130-400); RBC Distribution Width 16.5 % (11.5-14.5); Red Blood Cell (RBC) Count 3.15 mill/uL (4.70-6.10); White Blood Cell (WBC) Count 9.3 10x3/uL (4.8-10.8)
[2022-02-06 01:28] LABS: ALT (SGPT) 18 U/L (8-55); AST (SGOT) 33 U/L (5-34); Albumin 2.6 g/dL (3.4-4.8); Alkaline Phosphatase 63 U/L (40-110); Anion Gap 15 mmol/L (10-20); Anisocytosis SLIGHT = 6-15 cells (100X) (0-5/hpf); BUN (Urea Nitrogen) 37 mg/dL (8.4-25.7); Band 3 % (5-11); Bilirubin, Total 0.8 mg/dL (0.2-1.2); Calc. Creatinine Clearance 19 mL/min (70-130); Calcium 8.4 mg/dL (7.8-10.44); Carbon Dioxide 18 mmol/L (23-31); Chloride 105 mmol/L (98-107); Estimated GFR 20; Globulin 3.7 g/dL (2.4-3.5); Glucose 143 mg/dL (83-110); Hypochromia SLIGHT = 6-15 cells (100X) (0-5/hpf); Lymphocytes 19 % (21-51); MDiff Complete? YES; Monocytes 11 % (0-10); Neutrophil 67 % (42-75); Platelet Morphology Comment Appears Adequate; Potassium 3.7 mmol/L (3.5-5.1); Protein, Total 6.3 g/dL (5.8-8.1); Sodium 134 mmol/L (136-145)
[2022-02-06 06:43] LABS: #Eosinphils 0.1 thou/uL (0.0-0.7); #Lymphocytes 1.8 thou/uL (1.20-3.40); #Monocytes 1.3 thou/uL (0.11-0.59); #Neutrophils 5.7 thou/uL (1.40-6.50); %Basophils 0.3 % (0.0-1.0); %Eosinophils 0.7 % (0.0-10.0); %Lymphocytes 20.5 % (21.0-51.0); %Monocytes 14.6 % (0.0-10.0); %Neutrophils 63.9 % (42.0-75.0); Mean Corpuscular HGB CONC 31.4 g/dL (32.0-36.0); Mean Corpuscular Hemoglobin 28.3 pg (27.0-31.0); Mean Corpuscular Volume 90.1 fl (78.0-98.0); Mean Platelet Volume 7.3 fL (7.4-10.4); Platelet Count 203 10x3/uL (130-400); RBC Distribution Width 16.6 % (11.5-14.5); Red Blood Cell (RBC) Count 3.19 mill/uL (4.70-6.10); White Blood Cell (WBC) Count 8.9 10x3/uL (4.8-10.8)
[2022-02-06] MEDS ORDERED: predniSONE 1 MG TAB PO SCH (08:00)
[2022-02-06] MEDS ORDERED: Cholecalciferol 1,000 UNITS (25 MCG) TAB PO SCH (09:00)
[2022-02-06] MEDS ORDERED: Ezetimibe 10 MG TAB PO SCH (09:00)
[2022-02-06] MEDS ORDERED: Venlafaxine HCl XR 150 MG CAP PO SCH (09:00)
[2022-02-06] MEDS ORDERED: Fluticasone Propionate Nasal Spray 16 gm Bottle NASAL SCH (09:00)
[2022-02-06] MEDS: Diclofenac 1% 100 GM GEL TP SCH ×3 (09:06→16:38)
[2022-02-06] MEDS: Aspirin Chewable 81 MG TAB PO SCH (09:07)
[2022-02-06] MEDS: sulfaSALAzine 500 MG TAB PO SCH (09:08)
[2022-02-06] MEDS: Docusate 100 MG CAP PO SCH (09:08)
[2022-02-06] MEDS: Carvedilol 6.25 MG TAB PO SCH ×2 (09:08→16:37)
[2022-02-06] MEDS: Senokot S 8.6-50 MG TAB PO SCH (09:09)
[2022-02-06 20:14] VITALS: BP 120/56; TEMP 99.3
== END 2022-02-06 20:15 | DRG 281 ==
LOC: ERS 11:13 → 2NO 15:46 → OBSVTOIN 02-03 07:08
PROVIDERS: ADMIT Family Medicine; ATTEND Family Medicine
DX: I21.4 Non-ST elevation (NSTEMI) myocardial infarction (principal); I42.9 Cardiomyopathy, unspecified; N18.4 Chronic kidney disease, stage 4 (severe); Z66 Do not resuscitate; Z20.822 Contact with and (suspected) exposure to COVID-19; E78.5 Hyperlipidemia, unspecified; E11.22 Type 2 diabetes mellitus with diabetic chronic kidney disease; I12.9 Hypertensive chronic kidney disease with stage 1 through stage 4 chronic kidney disease, or unspecified chronic kidney disease; E83.42 Hypomagnesemia; D53.9 Nutritional anemia, unspecified; D63.1 Anemia in chronic kidney disease; M19.90 Unspecified osteoarthritis, unspecified site; F32.A Depression, unspecified; I25.110 Atherosclerotic heart disease of native coronary artery with unstable angina pectoris; I48.91 Unspecified atrial fibrillation; Z88.1 Allergy status to other antibiotic agents; Z88.5 Allergy status to narcotic agent; Z88.8 Allergy status to other drugs, medicaments and biological substances; Z79.899 Other long term (current) drug therapy; Z79.01 Long term (current) use of anticoagulants; Z79.52 Long term (current) use of systemic steroids; I25.2 Old myocardial infarction; Z95.5 Presence of coronary angioplasty implant and graft; Z86.718 Personal history of other venous thrombosis and embolism; Z86.16 Personal history of COVID-19
CPT/HCPCS: 36415; 36416; 74018; 80048; 83735; 84443; 84484; 84550; 85025; 85379; 85730; 93005; 93306; 93798; C9113; J1644; J1815; J3475; J7030; J7050; U0003; U0005

== ENCOUNTER 2023-06-23 14:57 | Inpatient (IN) | payer MEDICARE ==
[2023-06-23 15:36] LABS: Actual Bicarbonate (HCO3v) 17.5 mEq/L (22-28); Calcium, Ionized (venous) 1.04 mmol/L (1.16-1.32); Chloride (VBG) 97 mmol/L (98-106); Hematocrit-VBG 29 % (42.0-52.0); Hemoglobin (Hb) 9.9 g/dL (12.6-17.4); Potassium (VBG) 4.68 mmol/L (3.70-5.30); Sodium 130 mmol/L (133-146); pH (venous) 7.254 (7.32-7.43)
[2023-06-23 15:48] LABS: #Basophils Less than 0.03 10x3/uL (0.0-0.2); #Eosinphils Less than 0.03 10x3/uL (0.0-0.7); %Basophils 0.1 % (0.0-1.0); %Lymphocytes 2.4 % (21.0-51.0); %Monocytes 8.2 % (0.0-10.0); %Neutrophils 86.6 % (42.0-75.0); Hematocrit 27.2 % (42.0-52.0); Hemoglobin 8.8 g/dL (14.0-18.0); Mean Corpuscular HGB CONC 32.4 g/dL (32.0-36.0); Mean Corpuscular Hemoglobin 30.2 pg (27.0-31.0); Mean Corpuscular Volume 93.5 fL (78.0-98.0); Mean Platelet Volume 9.9 fL (7.4-10.4); Platelet Count 215 10x3/uL (130-400); RBC Distribution Width 15.5 % (11.5-14.5); Red Blood Cell (RBC) Count 2.91 mill/uL (4.70-6.10)
[2023-06-23 15:57] LABS: ALT (SGPT) 13 U/L (8-55); AST (SGOT) 25 U/L (5-34); Albumin 2.3 g/dL (3.4-4.8); Alkaline Phosphatase 45 U/L (40-110); Anion Gap 18 mmol/L (10-20); BUN (Urea Nitrogen) 56 mg/dL (8.4-25.7); Bilirubin, Total 0.5 mg/dL (0.2-1.2); Calc. Creatinine Clearance 0 mL/min (70-130); Calcium 7.7 mg/dL (7.8-10.44); Carbon Dioxide 19 mmol/L (23-31); Chloride 99 mmol/L (98-107); Estimated GFR 10; Globulin 2.9 g/dL (2.4-3.5); Glucose 161 mg/dL (83-110); Magnesium 1.9 mg/dL (1.6-2.6); Potassium 4.8 mmol/L (3.5-5.1); Protein, Total 5.2 g/dL (5.8-8.1); Sodium 131 mmol/L (136-145)
[2023-06-23 16:03] LABS: INR-International Normal Ratio 1.4; Prothrombin Time 17.1 sec (12.0-14.7)
[2023-06-23 16:04] LABS: PTT 37.6 sec (22.9-36.1)
[2023-06-23] MEDS ORDERED: Acetaminophen 650 MG Suppository PR PRN (16:04)
[2023-06-23] MEDS ORDERED: Dextrose 5% in Water 1,000 ML IV PRN (17:20)
[2023-06-23] MEDS ORDERED: Glucagon 1 MG/ML KIT IM PRN (17:20)
[2023-06-23] MEDS ORDERED: Dextrose 50% Abboject 50 ML SYRINGE SLOW IVP PRN (17:20)
[2023-06-23] MEDS ORDERED: HumaLOG 300 UNITS/3 ML VIAL SC PRN ×2 (17:20)
[2023-06-23 18:27] LABS: Lactic Acid 2.9 mmol/L (0.5-2.2)
[2023-06-23] MEDS: cefTRIAXone\\ROCEPHIN 1 GM in Sodium Chloride 0.9% 100 ML IVPB SCH (18:46)
[2023-06-23] MEDS ORDERED: Famotidine/PF 20 mg/2ml Vial SLOW IVP SCH (21:00)
[2023-06-23] MEDS: Finasteride 5 MG TAB PO SCH (21:17)
[2023-06-23] MEDS: Docusate 100 MG CAP PO SCH (21:17)
[2023-06-23] MEDS: Sodium Bicarbonate Tab 325 MG TAB PO SCH (21:17)
[2023-06-23 21:48] LABS: Hematocrit 23.8 % (42.0-52.0); Hemoglobin 7.9 g/dL (14.0-18.0); Platelet Count 211 10x3/uL (130-400)
[2023-06-23] MEDS: Sodium Bicarbonate 150 MEQ in Dextrose 5% in Water 1,000 ML IV SCH (21:51)
[2023-06-23] MEDS: Fluticasone Propionate Nasal Spray 16 gm Bottle NASAL SCH (22:36)
[2023-06-23 23:00] LABS: Troponin I 0.051 ng/mL (< 0.028)
[2023-06-24] MEDS: fentaNYL 50 mcg/mL 1 mL Vial SLOW IVP SCH ×2 (01:23→21:27)
[2023-06-24 03:34] LABS: #Basophils Less than 0.03 10x3/uL (0.0-0.2); #Eosinphils Less than 0.03 10x3/uL (0.0-0.7); %Basophils 0.2 % (0.0-1.0); %Neutrophils 79.1 % (42.0-75.0); Hematocrit 22.5 % (42.0-52.0); Hemoglobin 7.3 g/dL (14.0-18.0); Hemoglobin 7.4 g/dL (14.0-18.0); Mean Corpuscular HGB CONC 33.2 g/dL (32.0-36.0); Mean Corpuscular Hemoglobin 30.2 pg (27.0-31.0); Mean Corpuscular Volume 90.9 fL (78.0-98.0); Mean Platelet Volume 9.5 fL (7.4-10.4); Platelet Count 190 10x3/uL (130-400); Platelet Count 192 10x3/uL (130-400); RBC Distribution Width 16.5 % (11.5-14.5); Red Blood Cell (RBC) Count 2.42 mill/uL (4.70-6.10)
[2023-06-24 03:51] LABS: ALT (SGPT) 10 U/L (8-55); AST (SGOT) 26 U/L (5-34); Albumin 2.2 g/dL (3.4-4.8); Alkaline Phosphatase 43 U/L (40-110); Anion Gap 19 mmol/L (10-20); BUN (Urea Nitrogen) 62 mg/dL (8.4-25.7); Bilirubin, Total 0.5 mg/dL (0.2-1.2); Calc. Creatinine Clearance 9 mL/min (70-130); Carbon Dioxide 21 mmol/L (23-31); Chloride 96 mmol/L (98-107); Estimated GFR 9; Globulin 3.4 g/dL (2.4-3.5); Glucose 158 mg/dL (83-110); Potassium 4.2 mmol/L (3.5-5.1); Protein, Total 5.6 g/dL (5.8-8.1); Sodium 132 mmol/L (136-145)
[2023-06-24 05:59] VITALS: BMI 20.9
[2023-06-24] MEDS: Pantoprazole 40 MG VIAL IVP SCH (07:55)
[2023-06-24] MEDS: Albumin 25% 25 GM (100 mL) BOT IVPB SCH ×2 (07:55→11:30)
[2023-06-24] MEDS: Ezetimibe 10 MG TAB PO SCH (07:55)
[2023-06-24] MEDS: Loratadine 10 MG TAB PO SCH (07:55)
[2023-06-24 08:18] LABS: Bilirubin Negative (Negative); Blood, Urine Trace (Negative); Glucose, Urine (Dipstick) 500 mg/dL (Negative); Ketone, Urine Negative (Negative); Leukocyte Negative (Negative); Nitrite Negative (Negative); Protein, Urine (Dipstick) 30 mg/dL (Neg-Trace); Specific Gravity, Urine 1.025 (1.005-1.030); Urobilinogen 0.2 mg/dL (Less than 2); pH, Urine 5.5 (5.0-9.0)
[2023-06-24 08:23] LABS: Bacteria/HPF 2+ HPF (None Seen); CAUTI Indications for Culture Pelvic or flank pain; Squamous Epithelial 0-3 HPF (0-3); WBC/HPF 0-3 HPF (0-3)
[2023-06-24 08:24] LABS: Clarity Clear (Clear)
[2023-06-24 08:25] LABS: Urine Culture Reflex No No
[2023-06-24 08:41] LABS: Creatinine, Urine 83.12 mg/dL (63-166); Protein, Urine Random Quant 53 mg/dL (1-14); Sodium, Urine 29 mmol/L (Not Available); Urea Nitrogen, Random Urine Greater than 100 mg/dl
[2023-06-24 10:04] LABS: Hematocrit 22.8 % (42.0-52.0); Hemoglobin 7.5 g/dL (14.0-18.0); Platelet Count 156 10x3/uL (130-400)
[2023-06-24] MEDS: Sodium Bicarbonate 150 MEQ in Dextrose 5% in Water 1,000 ML IV SCH (10:30)
[2023-06-24] MEDS: cefTRIAXone\\ROCEPHIN 1 GM in Sodium Chloride 0.9% 100 ML IVPB SCH (11:30)
[2023-06-24 14:45] LABS: Hematocrit 23.6 % (42.0-52.0)
[2023-06-24 16:03] LABS: Hematocrit 22.3 % (42.0-52.0); Hemoglobin 7.7 g/dL (14.0-18.0); Platelet Count 126 10x3/uL (130-400)
[2023-06-24] MEDS: Acetaminophen 325 MG TAB PO PRN (20:00)
[2023-06-24 21:41] LABS: Hematocrit 21.2 % (42.0-52.0); Hemoglobin 7.5 g/dL (14.0-18.0); Platelet Count 127 10x3/uL (130-400)
[2023-06-25] MEDS: fentaNYL 50 mcg/mL 1 mL Vial SLOW IVP SCH ×2 (00:37→11:10)
[2023-06-25] MEDS: HYDROcodone/Acetaminophen 7.5/325 mg Tablet PO PRN (01:40)
[2023-06-25] MEDS: diphenhydrAMINE 50 MG/ML VIAL IVP SCH (02:52)
[2023-06-25 04:09] LABS: #Basophils Less than 0.03 10x3/uL (0.0-0.2); %Basophils 0.1 % (0.0-1.0); %Eosinophils 0.3 % (0.0-10.0); %Lymphocytes 10.3 % (21.0-51.0); %Monocytes 11.9 % (0.0-10.0); %Neutrophils 76.6 % (42.0-75.0); Hematocrit 23.2 % (42.0-52.0); Hemoglobin 7.9 g/dL (14.0-18.0); Mean Corpuscular HGB CONC 34.1 g/dL (32.0-36.0); Mean Corpuscular Hemoglobin 30.5 pg (27.0-31.0); Mean Corpuscular Volume 89.6 fL (78.0-98.0); Mean Platelet Volume 9.2 fL (7.4-10.4); Platelet Count 143 10x3/uL (130-400); RBC Distribution Width 15.2 % (11.5-14.5); Red Blood Cell (RBC) Count 2.59 mill/uL (4.70-6.10)
[2023-06-25 04:30] LABS: ALT (SGPT) 18 U/L (8-55); AST (SGOT) 46 U/L (5-34); Albumin 2.9 g/dL (3.4-4.8); Alkaline Phosphatase 51 U/L (40-110); Anion Gap 16 mmol/L (10-20); BUN (Urea Nitrogen) 55 mg/dL (8.4-25.7); Bilirubin, Total 0.6 mg/dL (0.2-1.2); Calc. Creatinine Clearance 10 mL/min (70-130); Calcium 7.6 mg/dL (7.8-10.44); Carbon Dioxide 25 mmol/L (23-31); Chloride 91 mmol/L (98-107); Estimated GFR 10; Globulin 2.9 g/dL (2.4-3.5); Glucose 136 mg/dL (83-110); Potassium 3.4 mmol/L (3.5-5.1); Protein, Total 5.8 g/dL (5.8-8.1); Sodium 129 mmol/L (136-145)
[2023-06-25] MEDS: Albumin 25% 25 GM (100 mL) BOT IVPB SCH ×2 (08:30→10:15)
[2023-06-25] MEDS: Sodium Bicarbonate 75 MEQ in Dextrose 5 %-0.45 % NaCl 1,000 ML IV SCH (08:55)
[2023-06-25] MEDS ORDERED: Lactated Ringer's 1,000 ML IV SCH (10:00)
[2023-06-25] MEDS: Potassium Chloride 20 MEQ TAB PO SCH (10:20)
[2023-06-25] MEDS: Lactated Ringer's 1,000 ML IV SCH (10:20)
[2023-06-25] MEDS ORDERED: Fentanyl 100 MCG/2 ML VIAL SLOW IVP PRN (10:54)
[2023-06-25 11:07] LABS: Hematocrit 22.1 % (42.0-52.0); Hemoglobin 7.4 g/dL (14.0-18.0); Platelet Count 147 10x3/uL (130-400)
[2023-06-25] MEDS: Ondansetron PF 4 MG/2 ML Vial IVP PRN (14:05)
[2023-06-25 17:19] LABS: Hematocrit 24.6 % (42.0-52.0); Hemoglobin 8.4 g/dL (14.0-18.0); Platelet Count 130 10x3/uL (130-400)
[2023-06-25] MEDS: fentaNYL 50 mcg/mL 1 mL Vial SLOW IVP PRN (21:46)
[2023-06-25 23:37] LABS: Hemoglobin 8.8 g/dL (14.0-18.0); Platelet Count 154 10x3/uL (130-400)
[2023-06-26] MEDS: diphenhydrAMINE 50 MG/ML VIAL IVP SCH (00:20)
[2023-06-26 05:41] LABS: #Basophils Less than 0.03 10x3/uL (0.0-0.2); %Basophils 0.3 % (0.0-1.0); %Eosinophils 1.2 % (0.0-10.0); %Lymphocytes 13.7 % (21.0-51.0); %Monocytes 12.4 % (0.0-10.0); Hemoglobin 9.1 g/dL (14.0-18.0); Mean Corpuscular HGB CONC 33.7 g/dL (32.0-36.0); Mean Corpuscular Volume 89.1 fL (78.0-98.0); Mean Platelet Volume 9.2 fL (7.4-10.4); Platelet Count 154 10x3/uL (130-400); RBC Distribution Width 15.1 % (11.5-14.5); Red Blood Cell (RBC) Count 3.03 mill/uL (4.70-6.10)
[2023-06-26 06:08] LABS: ALT (SGPT) 38 U/L (8-55); AST (SGOT) 89 U/L (5-34); Albumin 3.5 g/dL (3.4-4.8); Alkaline Phosphatase 133 U/L (40-110); Anion Gap 18 mmol/L (10-20); BUN (Urea Nitrogen) 50 mg/dL (8.4-25.7); Bilirubin, Total 0.9 mg/dL (0.2-1.2); Calc. Creatinine Clearance 11 mL/min (70-130); Calcium 8.3 mg/dL (7.8-10.44); Carbon Dioxide 25 mmol/L (23-31); Chloride 92 mmol/L (98-107); Estimated GFR 12; Globulin 2.8 g/dL (2.4-3.5); Glucose 74 mg/dL (83-110); Potassium 3.9 mmol/L (3.5-5.1); Protein, Total 6.3 g/dL (5.8-8.1); Sodium 131 mmol/L (136-145)
[2023-06-26] MEDS: Isosorbide Dinitrate 5 MG TAB PO SCH ×2 (06:50→13:53)
[2023-06-26] MEDS: hydrALAZINE 10 MG TAB PO SCH ×2 (06:50→13:53)
[2023-06-26] MEDS: Pantoprazole DR 40 MG TAB PO SCH (09:08)
[2023-06-26] MEDS: guaiFENesin ER 600 MG TAB PO SCH (09:10)
[2023-06-26] MEDS: Magnesium Citrate 300 ML BOT PO SCH (22:00)
[2023-06-27 00:48] LABS: Hematocrit 24.2 % (42.0-52.0); Hemoglobin 8.1 g/dL (14.0-18.0); Mean Corpuscular HGB CONC 33.5 g/dL (32.0-36.0); Mean Corpuscular Hemoglobin 30.6 pg (27.0-31.0); Mean Corpuscular Volume 91.3 fL (78.0-98.0); Mean Platelet Volume 9.2 fL (7.4-10.4); Platelet Count 286 10x3/uL (130-400); RBC Distribution Width 14.9 % (11.5-14.5); Red Blood Cell (RBC) Count 2.65 mill/uL (4.70-6.10)
[2023-06-27 06:51] LABS: #Basophils 0.03 10x3/uL (0.0-0.2); #Eosinphils Less than 0.03 10x3/uL (0.0-0.7); %Basophils 0.2 % (0.0-1.0); %Lymphocytes 5.2 % (21.0-51.0); %Monocytes 9.5 % (0.0-10.0); %Neutrophils 84.4 % (42.0-75.0); Hematocrit 29.3 % (42.0-52.0); Hemoglobin 9.8 g/dL (14.0-18.0); Mean Corpuscular HGB CONC 33.4 g/dL (32.0-36.0); Mean Corpuscular Volume 92.7 fL (78.0-98.0); Platelet Count 226 10x3/uL (130-400); RBC Distribution Width 14.7 % (11.5-14.5); Red Blood Cell (RBC) Count 3.16 mill/uL (4.70-6.10)
[2023-06-27 07:34] LABS: ALT (SGPT) 103 U/L (8-55); AST (SGOT) 173 U/L (5-34); Alkaline Phosphatase 100 U/L (40-110); Anion Gap 18 mmol/L (10-20); BUN (Urea Nitrogen) 59 mg/dL (8.4-25.7); Bilirubin, Total 1.4 mg/dL (0.2-1.2); Calc. Creatinine Clearance 10 mL/min (70-130); Calcium 8.4 mg/dL (7.8-10.44); Carbon Dioxide 23 mmol/L (23-31); Chloride 92 mmol/L (98-107); Estimated GFR 11; Globulin 2.7 g/dL (2.4-3.5); Glucose 145 mg/dL (83-110); Potassium 5.2 mmol/L (3.5-5.1); Protein, Total 5.7 g/dL (5.8-8.1); Sodium 128 mmol/L (136-145)
[2023-06-27] MEDS: Albumin 25% 25 GM (100 mL) BOT IVPB SCH (11:29)
[2023-06-27] MEDS: Magnesium Citrate 300 ML BOT PO SCH (14:24)
[2023-06-27 15:02] LABS: Bilirubin Small (Negative); Blood, Urine Large (Negative); Glucose, Urine (Dipstick) 250 mg/dL (Negative); Ketone, Urine Negative (Negative); Leukocyte Negative (Negative); Nitrite Negative (Negative); Protein, Urine (Dipstick) > or equal to 300 mg/dL (Neg-Trace); Specific Gravity, Urine 1.025 (1.005-1.030); Urobilinogen 0.2 mg/dL (Less than 2); pH, Urine 5.5 (5.0-9.0)
[2023-06-27 15:05] LABS: Clarity Hazy (Clear)
[2023-06-27 15:06] LABS: Bacteria/HPF 2+ HPF (None Seen); RBC/HPF Greater than 50 HPF (0-3); Squamous Epithelial 0-3 HPF (0-3)
[2023-06-27 17:17] LABS: Hematocrit 23.8 % (42.0-52.0)
[2023-06-27] MEDS ORDERED: Ondansetron PF 4 MG/2 ML Vial IVP PRN (18:40)
[2023-06-27] MEDS: Morphine 2 MG/ML VIAL SLOW IVP PRN (19:20)
[2023-06-27] MEDS: Ondansetron PF 4 MG/2 ML Vial IVP SCH ×2 (19:51→23:13)
[2023-06-27] MEDS: Pantoprazole 40 MG VIAL IVP SCH (20:08)
[2023-06-27] MEDS: Melatonin 3 MG TAB PO PRN (20:57)
[2023-06-28 06:14] LABS: #Basophils 0.03 10x3/uL (0.0-0.2); %Basophils 0.3 % (0.0-1.0); %Eosinophils 1.4 % (0.0-10.0); %Lymphocytes 13.4 % (21.0-51.0); %Monocytes 12.8 % (0.0-10.0); Hematocrit 18.8 % (42.0-52.0); Hemoglobin 6.2 g/dL (14.0-18.0); Platelet Count 222 10x3/uL (130-400); RBC Distribution Width 15.9 % (11.5-14.5)
[2023-06-28 07:00] LABS: ALT (SGPT) 70 U/L (8-55); AST (SGOT) 91 U/L (5-34); Albumin 3.8 g/dL (3.4-4.8); Alkaline Phosphatase 55 U/L (40-110); Anion Gap 18 mmol/L (10-20); BUN (Urea Nitrogen) 74 mg/dL (8.4-25.7); Bilirubin, Total 0.8 mg/dL (0.2-1.2); Calc. Creatinine Clearance 12 mL/min (70-130); Calcium 8.7 mg/dL (7.8-10.44); Carbon Dioxide 27 mmol/L (23-31); Chloride 93 mmol/L (98-107); Estimated GFR 11; Glucose 115 mg/dL (83-110); Potassium 4.1 mmol/L (3.5-5.1); Protein, Total 5.8 g/dL (5.8-8.1); Sodium 134 mmol/L (136-145)
[2023-06-28] MEDS ORDERED: Pantoprazole 40 MG VIAL IVP SCH (09:00)
[2023-06-28] MEDS: Benzonatate 100 MG CAP PO SCH ×2 (11:50→13:52)
[2023-06-28] MEDS: guaiFENesin/DM ER PO SCH (13:51)
[2023-06-28 18:58] LABS: Hematocrit 25.8 % (42.0-52.0); Hematocrit 27.4 % (42.0-52.0); Hemoglobin 8.5 g/dL (14.0-18.0)
[2023-06-29 06:10] LABS: #Basophils 0.05 10x3/uL (0.0-0.2); %Basophils 0.4 % (0.0-1.0); %Eosinophils 3.7 % (0.0-10.0); %Lymphocytes 9.6 % (21.0-51.0); %Monocytes 11.5 % (0.0-10.0); Hematocrit 23.5 % (42.0-52.0); Hemoglobin 7.8 g/dL (14.0-18.0); Mean Corpuscular HGB CONC 33.2 g/dL (32.0-36.0); Mean Corpuscular Hemoglobin 30.1 pg (27.0-31.0); Mean Corpuscular Volume 90.7 fL (78.0-98.0); Mean Platelet Volume 8.9 fL (7.4-10.4); Platelet Count 274 10x3/uL (130-400); RBC Distribution Width 17.2 % (11.5-14.5); Red Blood Cell (RBC) Count 2.59 mill/uL (4.70-6.10)
[2023-06-29 06:34] LABS: ALT (SGPT) 69 U/L (8-55); AST (SGOT) 96 U/L (5-34); Albumin 3.3 g/dL (3.4-4.8); Alkaline Phosphatase 52 U/L (40-110); Anion Gap 18 mmol/L (10-20); BUN (Urea Nitrogen) 69 mg/dL (8.4-25.7); Bilirubin, Total 0.7 mg/dL (0.2-1.2); Calc. Creatinine Clearance 13 mL/min (70-130); Calcium 8.8 mg/dL (7.8-10.44); Carbon Dioxide 26 mmol/L (23-31); Chloride 94 mmol/L (98-107); Estimated GFR 12; Globulin 2.3 g/dL (2.4-3.5); Glucose 103 mg/dL (83-110); Potassium 4.2 mmol/L (3.5-5.1); Protein, Total 5.6 g/dL (5.8-8.1); Sodium 134 mmol/L (136-145)
[2023-06-29] MEDS: Albumin 25% 25 GM (100 mL) BOT IVPB SCH (11:59)
[2023-06-30 05:38] LABS: #Basophils 0.04 10x3/uL (0.0-0.2); %Basophils 0.4 % (0.0-1.0); %Eosinophils 2.1 % (0.0-10.0); %Lymphocytes 8.9 % (21.0-51.0); %Monocytes 11.9 % (0.0-10.0); %Neutrophils 75.8 % (42.0-75.0); Hematocrit 21.3 % (42.0-52.0); Mean Corpuscular HGB CONC 32.9 g/dL (32.0-36.0); Mean Corpuscular Hemoglobin 30.2 pg (27.0-31.0); Mean Corpuscular Volume 91.8 fL (78.0-98.0); Mean Platelet Volume 8.9 fL (7.4-10.4); Platelet Count 271 10x3/uL (130-400); Red Blood Cell (RBC) Count 2.32 mill/uL (4.70-6.10)
[2023-06-30 06:27] LABS: Anion Gap 17 mmol/L (10-20); BUN (Urea Nitrogen) 63 mg/dL (8.4-25.7); Calc. Creatinine Clearance 14 mL/min (70-130); Calcium 9.3 mg/dL (7.8-10.44); Carbon Dioxide 26 mmol/L (23-31); Chloride 94 mmol/L (98-107); Estimated GFR 13; Glucose 103 mg/dL (83-110); Potassium 4.1 mmol/L (3.5-5.1); Sodium 133 mmol/L (136-145)
[2023-06-30 08:18] VITALS: BP 150/91; TEMP 97.7
[2023-06-30 10:36] VITALS: BMI 23.3
[2023-06-30] MEDS: Albumin 25% 25 GM (100 mL) BOT IVPB SCH (11:50)
[2023-06-30 12:24] LABS: Hematocrit 21.8 % (42.0-52.0); Hemoglobin 7.1 g/dL (14.0-18.0)
== END 2023-06-30 15:35 | DRG 371 ==
LOC: ERS 14:57 → CCU 16:04 → IMCU/EMU 06-25 19:40 → T4-A 06-27 16:08
PROVIDERS: ADMIT Family Medicine; ATTEND Family Medicine
PROC: 30233N1 Transfusion of Nonautologous Red Blood Cells into Peripheral Vein, Percutaneous Approach (ICD-10-PCS; principal; 2023-06-24)
PROC: 30233J1 Transfusion of Nonautologous Serum Albumin into Peripheral Vein, Percutaneous Approach (ICD-10-PCS; 2023-06-24)
DX: K68.3 Retroperitoneal hematoma (principal); R57.8 Other shock; I50.32 Chronic diastolic (congestive) heart failure; D62 Acute posthemorrhagic anemia; N17.9 Acute kidney failure, unspecified; I42.8 Other cardiomyopathies; E87.1 Hypo-osmolality and hyponatremia; I13.0 Hypertensive heart and chronic kidney disease with heart failure and stage 1 through stage 4 chronic kidney disease, or unspecified chronic kidney disease; E87.20 Acidosis, unspecified; N18.4 Chronic kidney disease, stage 4 (severe); N28.1 Cyst of kidney, acquired; N28.89 Other specified disorders of kidney and ureter; I25.10 Atherosclerotic heart disease of native coronary artery without angina pectoris; Z95.1 Presence of aortocoronary bypass graft; I48.0 Paroxysmal atrial fibrillation; Z90.49 Acquired absence of other specified parts of digestive tract; Z88.8 Allergy status to other drugs, medicaments and biological substances; Z79.899 Other long term (current) drug therapy; Z79.82 Long term (current) use of aspirin; Z51.5 Encounter for palliative care; E11.22 Type 2 diabetes mellitus with diabetic chronic kidney disease; Z79.01 Long term (current) use of anticoagulants; Z66 Do not resuscitate
CPT/HCPCS: 36415; 36416; 36430; 71045; 74018; 80048; 80053; 81001; 82306; 82570; 82805; 83605; 83735; 84156; 84300; 84484; 84540; 85014; 85018; 85025; 85049; 85610; 85730; 86850; 86900; 86901; 93005; C9113; J0696; J1200; J2272; J2405; J3010; J3490; J7042; J7070; J7120; P9016; P9047